=== PATIENT | female | born 1945 | race Hispanic/Latino ===

== ENCOUNTER 2018-03-04 21:33 | Emergency (ER) | payer MEDICARE, OTHER ==
[~2018-03-04] VITALS: Ht 157.5 cm; Wt 68.0 kg
[~2018-03-04 21:33] MED LIST: ALDACTONE25 MG PO; ASCORBIC ACID500 MG PO; CALCIUM + VITA1 EACH PO; DULCOLAX SUPP10 MG RC; FLUCONAZOLE200 MG PO; FUROSEMIDE20 MG PO; FUROSEMIDE40 MG PO; HYDROCODONE-IB1 EAC1 PO; LACTULOSE20 GM/30 M PO; LIDODERM PATCH 5% TOP; LISINOPRIL10 MG PO; MAGNESIUM OXID400 MG PO; MERREM500 MG IV; MIDODRINE HCL10 MG PO; MULTI-VITAMIN1 EACH PO; OMEPRAZOLE40 MG PO; PANTOPRAZOLE SO40 MG PO; REGLAN10 MG PO; SPIRONOLACTONE25 MG PO; TRAVATAN Z5 ML OP; TRAVOPROST OP; TYLENOL # 31 EA PO; ULTRAM 50MG50 MG PO; VANCOMYCIN HCL1 GM IV; XIFAXAN550 MG PO; ZEPATIER; ZINC SULFATE220 M1 PO; ZOFRAN ODT4 MG PO
--- OUTSIDE RECORDS SUMMARY | 2018-03-04 21:36 | XMS REPORT | Clinical Summary ---
Author Author [facility] Address Unknown Phone Unavailable Care Team Providers Care Spare Hand Name Role Phone Asked, Pcp PCP Unavailable Allergies Active Allergy Reactions Severity Noted Date Comments Aspirin Hives 08/25/2017 Current Medications Prescription Sig. Disp. Refills Start End Date Status Date calcium carbonate-vitamin Take 1 tablet by mouth 2 Active D3 500 mg-200 unit per (two) times a day with tablet meals. magnesium oxide (MAG-OX) Take 400 mg by mouth 2 Active 400 mg tablet (two) times a day. midodrine (PROAMATINE) 10 Take 10 mg by mouth 3 Active MG tablet (three) times a day. MULTIVITAMIN ORAL Take 1 tablet by mouth Active daily. zinc sulfate (ZINCATE) Take 220 mg by mouth 2 Active 220 (50) mg capsule (two) times a day. lactulose 20 gram/30 mL Take 45 g by mouth 3 Active solution (three) times a day. Modifies prn omeprazole (PriLOSEC) 40 Take 40 mg by mouth Active MG capsule daily. riFAXimin (XIFAXAN) 550 Take 550 mg by mouth 2 Active mg tablet (two) times a day. travoprost, benzalkonium, 1 drop nightly. Active (TRAVATAN) 0.004 % ophthalmic solution ascorbic acid, vitamin C, Take 500 mg by mouth Active (VITAMIN C) 500 MG tablet daily. acetaminophen-codeine Take 1 tablet by mouth 01/20/20 Discontin (TYLENOL WITH CODEINE #3) every 8 (eight) hours as 18 ued 300-30 mg per tablet needed for moderate pain. ascorbic acid, vitamin C, Take 500 mg by mouth 2 01/20/20 Discontin (VITAMIN C) 500 MG tablet (two) times a day. 18 ued fluconazole (DIFLUCAN) Take 200 mg by mouth 12/10/19 Discontin 200 MG tablet daily. 18 ued furosemide (LASIX) 20 mg Take 20 mg by mouth 01/20/20 Discontin tablet daily. 18 ued spironolactone Take 25 mg by mouth as 01/20/20 Discontin (ALDACTONE) 25 MG tablet needed. 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 Cirrhosis 08/24/2017 Ascites 08/24/2017 Hepatitis C 08/24/2017 Hepatic encephalopathy 08/24/2017 Portal hypertension 08/24/2017 Resolved Problems Problem Noted Date Resolved Date Preop cardiovascular exam 11/28/2017 12/29/2017 Overview: Added automatically from request for surgery [id number] Encounters Date Type Specialty Care Team Description 03/03/2018 Orders Only Transplant Lesley Hill RN HCC ( hepatocellular carcinoma); Awaiting liver transplant; Coagulopathy 02/24/2018 Orders Only Transplant Lesley Hill RN HCC ( hepatocellular carcinoma); Awaiting liver transplant; Coagulopathy 02/17/2018 Orders Only Transplant Lesley Hill RN HCC ( hepatocellular carcinoma); Awaiting liver transplant; Coagulopathy 02/10/2018 Orders Only Transplant Lesley Hill RN HCC ( hepatocellular carcinoma); Awaiting liver transplant; Coagulopathy 02/09/2018 Documentation Transplant Lesley Hill RN MELD updated to 17, labs due 05/12/2018 02/03/2018 Orders Only Transplant Lesley Hill RN HCC ( hepatocellular carcinoma); Awaiting liver transplant; Coagulopathy 01/24/2018 Orders Only Transplant Lesley Hill RN HCC ( hepatocellular carcinoma) (Primary Dx); Awaiting liver transplant; Coagulopathy 01/19/2018 Hospital Transplant Robert Garcia MD Chronic hepatitis C Encounter without hepatic coma (Primary Dx); Awaiting liver transplant 01/19/2018 Hospital Radiology Carlie Fernandez MD Hepatocellular carcinoma; Encounter Hep C w/o coma, chronic 01/19/2018 Hospital Transplant Carlie Fernandez MD Awaiting liver Encounter transplant; Chronic hepatitis C with cirrhosis 01/19/2018 Orders Only Transplant Lesley Hill RN Awaiting liver transplant (Primary Dx); Chronic hepatitis C with cirrhosis 01/13/2018 Telephone Transplant Rut Warner MA Paperwork for dental procedure 01/05/2018 Telephone Transplant Bruno Carbajal MA Returning Call 12/29/2017 Hospital Transplant Robert Garcia MD Canceled ( Insurance Encounter Pending) 12/29/2017 Hospital Transplant Carlie Fernandez MD Hep C w/o coma, chronic; Encounter Chronic hepatitis C with cirrhosis; Awaiting liver transplant 12/29/2017 Telephone Transplant Karma Hadley Insurance coverage 12/29/2017 Telephone Transplant Rut Warner MA Pt's MRI 12/29/2017 Orders Only Transplant Lesley Hill RN Chronic hepatitis C with cirrhosis (Primary Dx); Awaiting liver transplant 12/28/2017 Telephone Transplant Bruno Carbajal MA Appointment 12/09/2017 Hospital Procedural Cardiology Geena Montaño MD Preop cardiovascular Encounter exam; Hepatitis C virus infection without hepatic coma, unspecified chronicity 12/09/2017 Procedure Pass Procedural Cardiology 12/09/2017 Surgery Procedural Cardiology Aashish Carranza MD Cv selective coronary angiography [63112 (CPT )] 12/06/2017 [facility] Gastroenterology Robert Garcia MD Alcoholic cirrhosis of Encounter liver with ascites (Primary Dx); Portal hypertension 12/06/2017 Lab Lab Geena Montaño MD Preop cardiovascular exam; Hepatitis C virus infection without hepatic coma, unspecified chronicity 12/06/2017 Procedure Pass Gastroenterology 12/06/2017 Telephone Transplant Angel Capone MA Procedure Questions 12/06/2017 Anesthesia Gastroenterology Queta Mistry MD Event 12/06/2017 Procedure Pass Gastroenterology 12/06/2017 Surgery Gastroenterology Robert Garcia MD EGD with cold bx AND COLONOSCOPY 11/28/2017 Orders Only Cardiology Vaibhav Escamilla MA Preop cardiovascular exam (Primary Dx); Hepatitis C virus infection without hepatic coma, unspecified chronicity 11/22/2017 Telephone Transplant Bruno Carbajal MA Returning Call 11/14/2017 Procedure Pass Radiology 11/14/2017 Telephone Transplant Meghan Arteaga RN Schedule [facility] 11/14/2017 Transcribe Transplant Meghan Arteaga RN Hep C w/o coma, chronic Orders (Primary Dx) 11/14/2017 Documentation Transplant Meghan Arteaga RN Listed for Liver Transplant - MELD 18 11/14/2017 Transcribe Transplant Meghan Arteaga RN Hepatocellular carcinoma Orders (Primary Dx); Hep C w/o coma, chronic 10/31/2017 Telephone Transplant Meghan Arteaga RN Update on Listing Labs 10/27/2017 Office Visit Infectious Diseases Romulo Jarrett MD LTBI ( latent tuberculosis infection) (Primary Dx) 10/27/2017 Telephone Transplant Bruno Carbajal MA Appointment 10/20/2017 Telephone Transplant Meghan Arteaga RN Listing Authorization & Labs 10/20/2017 Telephone Transplant Karma Hadley 10/19/2017 [facility] Radiology Carlie Fernandez MD HCC ( hepatocellular Encounter carcinoma) 10/19/2017 [facility] Radiology Carlie Fernandez MD HCC ( hepatocellular Encounter carcinoma) 10/14/2017 Telephone Transplant Bruno Carbajal MA Appointment Questions 10/06/2017 Procedure Pass Radiology 10/06/2017 Telephone Transplant Meghan Arteaga RN Liver MRB Outcome 10/06/2017 Telephone Transplant Clara Mahan MA Returning Call 10/06/2017 Transcribe Transplant Meghan Arteaga RN HCC ( hepatocellular Orders carcinoma) (Primary Dx) 10/06/2017 Telephone Transplant Meghan Arteaga RN ID Consult 10/06/2017 Telephone Transplant Meghan Arteaga RN Liver MRB Outcome 10/06/2017 Documentation Transplant Meghan Arteaga RN Liver MRB Outcome - Accepted 10/06/2017 Telephone Transplant Rut Warner MA Mammogram results 10/05/2017 Documentation Transplant Meghan Arteaga RN Liver MRB Presentation 09/27/2017 Hospital Procedural Cardiology Rosenda Nuñez MD Screening for ischemic Encounter heart disease; Chronic hepatitis C without hepatic coma 09/27/2017 Hospital Procedural Cardiology Rosenda Nuñez MD Screening for ischemic Encounter heart disease; Chronic hepatitis C without hepatic coma 09/27/2017 Hospital Radiology Rosenda Nuñez MD Screening for ischemic Encounter heart disease; Chronic hepatitis C without hepatic coma 09/27/2017 [facility] Pulmonology Rosenda Nuñez MD Screening for ischemic Encounter heart disease; Chronic hepatitis C without hepatic coma 09/26/2017 Hospital Radiology Rosenda Nuñez MD Chronic hepatitis C Encounter without hepatic coma 09/26/2017 Hospital Radiology Rosenda Nuñez MD Screening for ischemic Encounter heart disease; Chronic hepatitis C without hepatic coma 09/26/2017 [facility] Radiology Rosenda Nuñez MD Screening for ischemic Encounter heart disease; Chronic hepatitis C without hepatic coma 09/26/2017 Hospital Radiology Rosenda Nuñez MD Screening for ischemic Encounter heart disease; Chronic hepatitis C without hepatic coma 09/26/2017 Hospital Transplant Rosenda Nuñez MD Encounter 09/26/2017 Hospital Transplant Rosenda Nuñez MD Encounter Jaleel Lee 09/26/2017 Hospital Transplant Rosenda Nuñez MD Encounter 09/26/2017 [facility] Transplant Asked, No Pcp Screening for ischemic Encounter Rahul Son MD heart disease; Chronic hepatitis C without hepatic coma 09/26/2017 Hospital Transplant Rosenda Nuñez MD Encounter 09/26/2017 [facility] Transplant Rosenda Nuñez MD Screening for ischemic Encounter heart disease; Chronic hepatitis C without hepatic coma 09/26/2017 Ancillary Radiology Rosenda Nuñez MD Chronic hepatitis C Orders without hepatic coma 09/26/2017 Telephone Transplant Angel Capone MA Orders to be Signed 09/13/2017 Procedure Pass Radiology 09/13/2017 Telephone Transplant Lee Jaleel TXP EVAL FINANCIALLY APPROVED 09/13/2017 Telephone Transplant Angel Capone MA Mammogram 09/13/2017 Transcribe Transplant Luis Adhikari Chronic hepatitis C Orders without hepatic coma (Primary Dx); Screening for ischemic heart disease 09/08/2017 Telephone Transplant Karma Hadley TXP - Auth for Eval 08/24/2017 Telephone Transplant Alessandra Key RN Referral - Liver Txp after 03/03/2017 Social History Tobacco Use Types Packs/Day Years Used Date Former Smoker Smokeless Tobacco: Never Used Alcohol Use Drinks/Week oz/Week Comments No Sex Assigned at Date Recorded Not on file Last Filed Vital Signs Vital Sign Reading Time Taken Blood Pressure 166/75 01/19/2018 1:55 PM CDT Pulse 59 01/19/2018 1:55 PM CDT Temperature 35.2 C (95.3 F) 01/19/2018 1:55 PM CDT Respiratory Rate 17 01/19/2018 1:55 PM CDT Oxygen Saturation 95% 01/19/2018 1:55 PM CDT Inhaled Oxygen - - Concentration Weight 72.8 kg (160 lb 8 oz) 01/19/2018 1:55 PM CDT Height 157.5 cm (5' 2") 01/19/2018 1:55 PM CDT Body Mass Index 29.36 01/19/2018 1:55 PM CDT Plan of Treatment Health Maintenance Due Date Last Done Comments BREAST CANCER SCREENING 1997 COLON CANCER SCREENING 1997 SHINGRIX VACCINE (#1) 1997 ZOSTER VACCINE 2007 PNEUMOCOCCAL 2012 POLYSACCHARIDE VACCINE AGE 65 AND OVER PNEUMOCOCCAL-13 2012 INFLUENZA VACCINE 05/10/2018 Procedures Procedure Name Priority Date/Time Associated Diagnosis Comments CV RIGHT HEART CATH Routine 12/09/2017 Preop cardiovascular exam Results for this 5:10 PM UNIT ASSISTANT Hepatitis C virus procedure are in the infection without hepatic results section. coma, unspecified chronicity CV SELECTIVE CORONARY Routine 12/09/2017 Preop cardiovascular exam Results for this ANGIOGRAPHY 5:10 PM UNIT ASSISTANT Hepatitis C virus procedure are in the infection without hepatic results section. coma, unspecified chronicity EGD with cold bx AND 12/06/2017 Esophageal varices COLONOSCOPY 2:00 PM UNIT ASSISTANT determined by endoscopy ECHOCARDIOGRAM WITH Routine 09/27/2017 Screening for ischemic Results for this AGITATED SALINE (00285) 4:28 PM UNIT ASSISTANT heart disease procedure are in the Chronic hepatitis C results section. without hepatic coma after 03/03/2017 Results * Basic metabolic panel (01/25/2018 4:14 PM) Only the most recent of 4 results within the time period is included. Component Value Ref Range Glucose 96 65 - 139 mg/dL Comment: Non-fasting reference interval BUN, whole blood 14 7 - 25 mg/dL Creatinine 0.62 0.60 - 0.93 mg/dL Comment: For patients >49 years of age, the reference limit for Creatinine is approximately 13% higher for people identified as -[place]. EGFR Non-Afr. [place] 91 > OR=60 mL/min/1.73m2 EGFR 106 > OR=60 mL/min/1.73m2 BUN/creatinine ratio NOT APPLICABLE 6 - 22 (calc) Sodium 132 (L) 135 - 146 mmol/L Potassium 3.7 3.5 - 5.3 mmol/L Chloride 100 98 - 110 mmol/L CO2 25 20 - 31 mmol/L Calcium 8.9 8.6 - 10.4 mg/dL Specimen Performing Laboratory [facility] Narrative FASTING:NO FASTING: NO * Hepatic function panel (01/25/2018 4:12 PM) Only the most recent of 3 results within the time period is included. Component Value Ref Range Protein 7.1 6.1 - 8.1 g/dL Albumin, S 2.6 (L) 3.6 - 5.1 g/dL Globulin, total 4.5 (H) 1.9 - 3.7 g/dL (calc) Albumin/globulin ratio 0.6 (L) 1.0 - 2.5 (calc) Total bilirubin 4.6 (H) 0.2 - 1.2 mg/dL Bilirubin direct 1.8 (H) < OR=0.2 mg/dL Bilirubin, indirect 2.8 (H) 0.2 - 1.2 mg/dL (calc) Alkaline phosphatase 170 (H) 33 - 130 U/L AST 44 (H) 10 - 35 U/L ALT 19 6 - 29 U/L Specimen Performing Laboratory [facility] Narrative FASTING:NO FASTING: NO * Prothrombin time with INR (01/25/2018 4:10 PM) Only the most recent of 3 results within the time period is included. Component Value Ref Range INR 1.6 (H) Comment: Reference Range 0.9-1.1 Moderate-intensity Warfarin Therapy 2.0-3.0 Higher-intensity Warfarin Therapy 3.0-4.0 Prothrombin time 16.3 (H) 9.0 - 11.5 sec Comment: For more information on this test, go to: http://education.[employer].[facility]/faq/RHA748 Specimen Performing Laboratory [facility] Narrative FASTING:NO FASTING: NO * Partial thromboplastin time, activated (01/25/2018 4:09 PM) Only the most recent of 3 results within the time period is included. Component Value Ref Range PTT 43 (H) 22 - 34 sec Comment: This test has not been validated for monitoring unfractionated heparin therapy. For testing that is validated for this type of therapy, please refer to the Heparin Anti-Xa assay (test code 38306). For additional information, please refer to http://education.[employer].[facility]/faq/EBM464 (This link is being provided for informational/educational purposes only.) Specimen Performing Laboratory [facility] Narrative FASTING:NO FASTING: NO * CBC with platelet and differential (01/25/2018 4:06 PM) Only the most recent of 4 results within the time period is included. Component Value Ref Range WBC 3.9 3.8 - 10.8 Thousand/uL HGB 12.6 11.7 - 15.5 g/dL MCHC Comment: 32.0 - 36.0 g/dL Unable to evaluate results due to presence of interfering substances. Irreversible cold agglutinin, auto-agglutinin, or cryoglobulin suspected. Platelet count 63 (L) 140 - 400 Thousand/uL MPV 10.5 7.5 - 12.5 fL Neutrophils, absolute 2,566 1,500 - 7,800 cells/uL Lymphocytes, absolute 874 850 - 3,900 cells/uL Monocytes, absolute 410 200 - 950 cells/uL Eosinophils, absolute 31 15 - 500 cells/uL Basophils, absolute 20 0 - 200 cells/uL Neutrophils 65.8 % Lymphocytes 22.4 % Monocytes 10.5 % Eosinophils 0.8 % Basophils + RC 0.5 % Nucleated RBC 3 Comment: Review of peripheral smear confirms automated results. RBC TNP Million/uL Comment: TEST(S) NOT PERFORMED: RED BLOOD CELL COUNT HEMATOCRIT MCV MCH RDW * Unable to report due to * * possible interfering substances.* Specimen Performing Laboratory [facility] Narrative FASTING:NO FASTING: NO * Estimated GFR (01/19/2018 2:25 PM) Only the most recent of 2 results within the time period is included. Component Value Ref Range GFR Non Af Amer 83 mL/min/1.73 m2 GFR Af Amer >90 mL/min/1.73 m2 Comment: Chronic kidney disease: <60 mL/min/1.73m2 Kidney failure: <15 mL/min/1.73m2 The estimated GFR is calculated from the IDMS-traceable Modification of Diet in Renal Disease Equation. The accuracy of the calculation is poor when the creatinine is normal. Calculated values >90 mL/min/1.73m2 are not reported. This equation has not been validated in children (<18 years), women, the elderly (>70 years), or ethnic groups other than Caucasians and Americans. Specimen Performing Laboratory Plasma specimen [facility] DEPARTMENT OF PATHOLOGY AND GENOMIC MEDICINE [address] [place] [id number] * Alpha fetoprotein (01/19/2018 2:25 PM) Only the most recent of 2 results within the time period is included. Component Value Ref Range Alpha fetoprotein 4.0 0.0 - 8.3 ng/mL Comment: The Briana 8000 AFP immunoassay was used. Results obtained with different assay methods or kits should not be used interchangeably and may be different. Specimen Performing Laboratory Serum [facility] DEPARTMENT OF PATHOLOGY AND GENOMIC MEDICINE [address] [place] [id number] * MRI Abdomen W Wo Contrast (01/19/2018 1:26 PM) Only the most recent of 2 results within the time period is included. Specimen Performing Laboratory [facility] [address] [place] [id number] Narrative EXAMINATION:MRI ABDOMEN W WO CONTRAST CLINICAL HISTORY:C22.0 Liver cell carcinoma, B18.2 Chronic viral hepatitis C , HCC Screen COMPARISON:September 27, 2017 TECHNIQUE: Multiplanar, multisequence MRI of the abdomen with and without intravenous gadolinium. FINDINGS: Liver cirrhotic. Multiple cysts are again seen in both lobes. A 1.4 cm nodule in segment 3 near the falciform ligament demonstrating washout, pseudocapsule, and diffusion restriction is not significantly changed since previous exam of September 27, 2017. No new mass is identified. Portal vein is patent. Spleen is mildly enlarged. Large splenorenal shunt. Gallbladder and pancreas unremarkable. No ascites. IMPRESSION: No significant change of a 1.4 cm left lobe mass compatible with HCC (LIRADS 5). [facility]-[id number] Procedure Note [facility], Radiology Results Incoming - 01/19/2018 2:23 PM CDT EXAMINATION: MRI ABDOMEN W WO CONTRAST CLINICAL HISTORY: C22.0 Liver cell carcinoma, B18.2 Chronic viral hepatitis C, HCC Screen COMPARISON: September 27, 2017 TECHNIQUE: Multiplanar, multisequence MRI of the abdomen with and without intravenous gadolinium. FINDINGS: Liver cirrhotic. Multiple cysts are again seen in both lobes. A 1.4 cm nodule in segment 3 near the falciform ligament demonstrating washout, pseudocapsule, and diffusion restriction is not significantly changed since previous exam of September 27, 2017. No new mass is identified. Portal vein is patent. Spleen is mildly enlarged. Large splenorenal shunt. Gallbladder and pancreas unremarkable. No ascites. IMPRESSION: No significant change of a 1.4 cm left lobe mass compatible with HCC (LIRADS 5). [facility]-[id number] * Estimated GFR (01/19/2018 1:04 PM) Component Value Ref Range GFR Non Af Amer 83 mL/min/1.73 m2 GFR Af Amer >90 mL/min/1.73 m2 Comment: Chronic kidney disease: <60 mL/min/1.73m2 Kidney failure: <15 mL/min/1.73m2 The estimated GFR is calculated from the IDMS-traceable Modification of Diet in Renal Disease Equation. The accuracy of the calculation is poor when the creatinine is normal. Calculated values >90 mL/min/1.73m2 are not reported. This equation has not been validated in children (<18 years), women, the elderly (>70 years), or ethnic groups other than Caucasians and Americans. Specimen Performing Laboratory Blood [facility] DEPARTMENT OF PATHOLOGY AND GENOMIC MEDICINE [address] [place] [id number] * POC creatinine (01/19/2018 1:04 PM) Component Value Ref Range POC creatinine 0.7 0.5 - 0.9 mg/dl Comment: Meter ID: [id number] Tool And Die Inspector: Edu Mullen Specimen Performing Laboratory Blood [facility] DEPARTMENT OF PATHOLOGY AND GENOMIC MEDICINE [address] [place] [id number] * Cv research laboratory specialist procedure (12/09/2017 5:10 PM) Specimen Performing Laboratory [facility] [address] [place] [address] Narrative Right heart filling pressure is normal. Pulmonary hypertension is absent. Wedge pressure is normal. Cardiac output is increased. Overall low risk from CV standpoint. No significant CAD noted. Normal filling pressures. * ECG Pre/Post Op (12/09/2017 3:55 PM) Component Value Ref Range Ventricular rate 56 Atrial rate 56 CA interval 130 QRSD interval 88 QT interval 484 QTC interval 467 P axis 1 13 QRS axis 1 -4 T wave axis 16 EKG impression Sinus bradycardia-Otherwise normal ECG-In automated comparison with ECG of 26-SEP-2017 09:17,-No significant change was found- Specimen Performing Laboratory [facility] MUSE [address] [place] [id number] * Surgical pathology request (12/06/2017 3:48 PM) Component Value Ref Range Surgical pathology report See link below for PDF Lab Report Result status This is Final Report to [id number] Specimen Performing Laboratory [facility] DEPARTMENT OF PATHOLOGY AND GENOMIC MEDICINE [address] [place] [address] * PT and PTT (12/06/2017 3:33 PM) Component Value Ref Range PTT 44 (H) 22 - 34 sec Comment: This test has not been validated for monitoring unfractionated heparin therapy. For testing that is validated for this type of therapy, please refer to the Heparin Anti-Xa assay (test code 66442). For additional information, please refer to http://education.[employer]/faq/YQY645 (This link is being provided for informational/educational purposes only.) INR 1.6 (H) Comment: Reference Range 0.9-1.1 Moderate-intensity Warfarin Therapy 2.0-3.0 Higher-intensity Warfarin Therapy 3.0-4.0 Prothrombin time 16.3 (H) 9.0 - 11.5 sec Specimen Performing Laboratory [facility] * CT Chest Wo Contrast (10/19/2017 5:18 PM) Specimen Performing Laboratory [address] [address] Narrative EXAMINATION: CT CHEST WO CONTRAST CLINICAL HISTORY: C22.0 Liver cell carcinoma, Mets W U TECHNIQUE: Multiple axial images of the chest were obtained without intravenous contrast. The lack of intravenous contrast reduces the sensitivity of detecting solid organ disease and evaluating vasculature. Sagittal and coronal computerized reformatted images were also obtained. CT imaging was performed with iterative reconstruction techniques and/or automated exposure control to reduce radiation dose. COMPARISON: None. IMPRESSION: 1.There are no pulmonary metastases. 2.A 3-4 mm juxtapleural nodule in the right lower lobe (image 75) is probably benign, possibly microatelectasis and can be followed. 3.There is minimal interstitial prominence in the lung bases. There is no acute consolidation. 4.There is no pleural or pericardial effusions are 5.No suspicious thoracic lymph nodes are seen. 6.The heart size is upper limit of normal. 7.Cirrhosis, multiple low-attenuation liver lesions, splenomegaly, and left upper quadrant abdominal varices are present. Refer to abdominal MRI 09/27/2017. 8.No skeletal metastases are seen. [id number] Procedure Note Interface, Radiology Results Incoming - 10/19/2017 5:39 PM UNIT ASSISTANT EXAMINATION: CT CHEST WO CONTRAST CLINICAL HISTORY: C22.0 Liver cell carcinoma, Mets W U TECHNIQUE: Multiple axial images of the chest were obtained without intravenous contrast. The lack of intravenous contrast reduces the sensitivity of detecting solid organ disease and evaluating vasculature. Sagittal and coronal computerized reformatted images were also obtained. CT imaging was performed with iterative reconstruction techniques and/or automated exposure control to reduce radiation dose. COMPARISON: None. IMPRESSION: 1. There are no pulmonary metastases. 2. A 3-4 mm juxtapleural nodule in the right lower lobe (image 75) is probably benign, possibly microatelectasis and can be followed. 3. There is minimal interstitial prominence in the lung bases. There is no acute consolidation. 4. There is no pleural or pericardial effusions are 5. No suspicious thoracic lymph nodes are seen. 6. The heart size is upper limit of normal. 7. Cirrhosis, multiple low-attenuation liver lesions, splenomegaly, and left upper quadrant abdominal varices are present. Refer to abdominal MRI 09/27/2017. 8. No skeletal metastases are seen. [id number] * MRI Bone Survey (10/19/2017 3:40 PM) Specimen Performing Laboratory [facility] [address] [place] [address] Narrative EXAMINATION:MRI BONE SURVEY CLINICAL HISTORY:C22.0 Liver cell carcinoma, Mets W U TECHNIQUE: Multiplanar T1-weighted images of the axial and proximal appendicular skeletal system were obtained. COMPARISON:None. Impression: 1.There is no marrow infiltrating lesion to indicate metastatic disease. 2.There is degenerative disc disease in the lumbar spine, greatest at L2-L3 and L3-L4. 3.There are small bilateral pleural effusions. 4.There are multiple T1 dark liver lesions. See recent abdominal MRI report from 09/27/2017 5.There is diffuse T1 hyperintense thickening/distention of the endometrial canal up to 2.6 cm. An IUD appears to be present as well. Recommend pelvic ultrasound for further evaluation. [id number] Procedure Note Interface, Radiology Results Incoming - 10/19/2017 3:53 PM UNIT ASSISTANT EXAMINATION: MRI BONE SURVEY CLINICAL HISTORY: C22.0 Liver cell carcinoma, Mets W U TECHNIQUE: Multiplanar T1-weighted images of the axial and proximal appendicular skeletal system were obtained. COMPARISON: None. Impression: 1. There is no marrow infiltrating lesion to indicate metastatic disease. 2. There is degenerative disc disease in the lumbar spine, greatest at L2-L3 and L3-L4. 3. There are small bilateral pleural effusions. 4. There are multiple T1 dark liver lesions. See recent abdominal MRI report from 09/27/2017 5. There is diffuse T1 hyperintense thickening/distention of the endometrial canal up to 2.6 cm. An IUD appears to be present as well. Recommend pelvic ultrasound for further evaluation. [id number] * Echocardiogram complete w contrast and 3D if needed (09/27/2017 4:28 PM) Specimen Performing Laboratory [facility] [address] [place] [address] Narrative Echocardiography Report [address]Name:MATILDE SANTA Pat.ID:[id number] .Date: 09/27/2017Refer.MD:Dunia NUÑEZ MD Exam Time: 3:46:00 PMStudy Type:Routine Echo Height:62inWeight:160lb BSA: 1.74 m2 DOBAge:1945,71Y Sex: FEMALEBP: 133/76 HR:65 bpmSonogrphr: Beto Henley [facility] Pat. Stat.:OutpatientStudy Status:Final Echo Event ID:[id number] Order ID:[id number] Reason for Study:Perioperative function eval-pre non cardiac transplant History / Clinical:Dizziness, Edema, Shortness of Breath Procedures:2D Echo, Colorflow Doppler, Intravenous Saline Contrast Race:C SUMMARY: LV EF is hyperdynamic. RV systolic function is normal Right to left shunt through a patent foramen ovale. Unable to assess PA systolic pressure despite use of contrast. FINDINGS: LV: LV size is normal. LV EF is hyperdynamic. Overall wall motionis hyperdynamic. Estimated EF is >70%. RV: RV size is normal. RV systolic function is normal. LA: LA volume is severely enlarged. RA: RA volume is severely enlarged. AO: Aortic root diameter is normal. JOSE: No pericardial effusion. Cntrst: Right to left shunt through a patent foramen ovale. AV: No structural AV abnormalities noted. MV: No structural MV abnormalities noted. A trace of mitral regurgitation. PV: Pulmonic valve not well seen. TV: No structural TV abnormalities noted. Mild tricuspid regurgitation Villeda: LV relaxation is impaired. LV filling pressure is normal. Other:Insufficient TR jet to estimate PA systolic pressure. Unable toassess PA systolic pressure despite use of contrast. MEASUREMENTS: 2D Parasternal [place] LVOT 1.9 cmLA Ds 4.1 cm LVIDd5.2 cmIndex 3 cm/m Ao Rtd 3.2 cm Index1.8 cm/m LVIDs2.1 cmLV Mass 117.7 g(87-129) LV%fs 59 % LVM Index 67.6 g/m2 IVSd 0.7 cmRWT 0.3 LVPWd0.6 cm LA Sng Plane LA Area 29.8 cm2(8.8-23.4) LA Vol 119.7 ml Index68.8 ml/m LA LngAx 6.1 cm DOPPLER LVOT For Flow LVOT Area2.8 cm2 LVOT SV 107.2 ml FPPPqvYoj206.4 cm/sHR 60.8 bpm [id number] mmHgLVOT CO 6.5 l/min LVOTmnPG 4.8 mmHgLVOT CI 3.7 l/m/m2 LVOT TVI37.8 cm Signed 09/28/2017 03:33 PM Annette Washington M.D. Procedure Note Interface, Radiology Results In - 09/28/2017 3:33 PM [facility] Echocardiography Report [address] [place] [address] Pat.Name: MATILDE SANTA Pat.ID: [id number] St.Date: 09/27/2017 Refer.MD: Dunia NUÑEZ MD Exam Time: 3:46:00 PM Study Type:Routine Echo Height: 62in Weight: 160lb BSA: 1.74 m2 Age: 2 1945,71Y Sex: FEMALE BP: 133/76 HR: 65 bpm Sonogrphr: TONI Olvera Pat. Stat.:Outpatient Study Status:Final Echo Event ID:[id number] Order ID: [id number] Reason for Study:Perioperative function eval-pre non cardiac transplant History / Clinical:Dizziness, Edema, Shortness of Breath Procedures:2D Echo, Colorflow Doppler, Intravenous Saline Contrast Race: C SUMMARY: LV EF is hyperdynamic. RV systolic function is normal Right to left shunt through a patent foramen ovale. Unable to assess PA systolic pressure despite use of contrast. FINDINGS: LV: LV size is normal. LV EF is hyperdynamic. Overall wall motion is hyperdynamic. Estimated EF is >70%. RV: RV size is normal. RV systolic function is normal. LA: LA volume is severely enlarged. RA: RA volume is severely enlarged. AO: Aortic root diameter is normal. JOSE: No pericardial effusion. Cntrst: Right to left shunt through a patent foramen ovale. AV: No structural AV abnormalities noted. MV: No structural MV abnormalities noted. A trace of mitral regurgitation. PV: Pulmonic valve not well seen. TV: No structural TV abnormalities noted. Mild tricuspid regurgitation Villeda: LV relaxation is impaired. LV filling pressure is normal. Other: Insufficient TR jet to estimate PA systolic pressure. Unable to assess PA systolic pressure despite use of contrast. MEASUREMENTS: 2D Parasternal [place] LVOT 1.9 cm LA Ds 4.1 cm LVIDd 5.2 cm Index 3 cm/m Ao Rtd 3.2 cm Index 1.8 cm/m LVIDs 2.1 cm LV Mass 117.7 g (87-129) LV%fs 59 % LVM Index 67.6 g/m2 IVSd 0.7 cm RWT 0.3 LVPWd 0.6 cm LA Sng Plane LA Area 29.8 cm2 (8.8-23.4) LA Vol 119.7 ml Index 68.8 ml/m LA LngAx 6.1 cm DOPPLER LVOT For Flow LVOT Area 2.8 cm2 LVOT SV 107.2 ml LVOTpkVel 158.4 cm/s HR 60.8 bpm LVOTpkPG 10 mmHg LVOT CO 6.5 l/min LVOTmnPG 4.8 mmHg LVOT CI 3.7 l/m/m2 LVOT TVI 37.8 cm Signed 09/28/2017 03:33 PM Annette Washington M.D. * PV carotid duplex (09/27/2017 3:51 PM) Specimen Performing Laboratory [facility] [address] [place] [address] [facility] Vascular Ultrasound Laboratory Carotid Artery Duplex Report [address] [address], [place] [address] For research quality assurance analyst purposes, the categorization of the degree of the stenosis of this exam is based on criteria described in the IAC carotid stenosis grading white paper( www.intersocietal.org/Vascular) and Patricia Macias., Rachel Tran, et al. Carotid artery stenosis: vargas-scale and Doppler US diagnosis--Society of Radiologists in Ultrasound Consensus Conference. Radiology. 2003 Nov; 229(2):340-6. Pat.Name:MATILDE SANTA Pat.ID:[id number] .Date: 09/27/2017Refer.MD:ROSENDA NUÑEZ MD Exam Time: 3:38:00 PMStudy Type:Carotid Height:62inWeight:160lb BSA: 1.74 m2 DOBAge:1945,71Y Sex: FEMALESonogrphr: Jules Moreau RN, RVS Pat. Stat.:OutpatientRoom:[place] TapeVol: , CPT - 4: 93607 Echo Event ID:[id number] Order ID:[id number] Reason for Study:Chronic hepatitis-C. Pre-op CV exam for liver transplant. Race:C SUMMARY: PHYSICAL ASSESSMENT BloodPulsesCarotid Pressure Carotid TemporalBruit Right IV ++0 Left 121/55 ++0 CAROTID ARTERY SCAN RIGHT: There is smooth intimal lining in the common carotid artery. There is hard plaque in the bulb, internal carotid artery.The external carotid artery is clear.Colorflow is normal. LEFT:There is smooth intimal lining in the common carotid artery. There is hard plaque in the bulb, internal carotid artery.The external carotid artery is clear.Colorflow is normal. PRELIMINARY FINDINGS 1. Mild, <50% stenosis in the bulb and internal carotid artery, bilaterally. PHYSICIAN INTERPRETATION 1.Bilateral carotid artery examination demonstrates plaque in the bulbs and internal carotid arteries without hemodynamically significant stenosis. (<50%) Carotid Findings:RightLeft Verteb.Flw Antegrade Antegrade Subclavian Triphasic Triphasic MEASUREMENTS: DOPPLER Left CCA Dist CCA Dist PSV88.8 cm/sCCA Dist EDV25.9 cm/s Left CCA Mid CCA Mid PSV 95.9 cm/sCCA Mid EDV 18.9 cm/s Left CCA Prox CCA Prox PSV89.6 cm/sCCA Prox EDV21.2 cm/s Left ICA Dist ICA Dist PSV51.7 cm/Beck Dist EDV16.1 cm/s Left ICA Mid ICA Mid PSV 55.2 cm/Beck Mid EDV 19.1 cm/s Left ICA Prox ICA Prox PSV46 cm/Beck Prox EDV17.1 cm/ s Left ECA Prox ECA Prox PSV39.6 cm/sECA Prox EDV13.1 cm/s Left SCA Prox SCA Prox PSV94.4 cm/s Left Vertebral Vertebral PSV 57.5 cm/sVertebral EDV 13.5 cm/s Right CCA Dist CCA Dist PSV66.3 cm/sCCA Dist EDV17.6 cm/s Right CCA Mid CCA Mid PSV 82.1 cm/sCCA Mid EDV 18.8 cm/s Right CCA Prox CCA Prox PSV76.8 cm/sCCA Prox EDV19.9 cm/s Right ICA Dist ICA Dist PSV71.5 cm/Beck Dist EDV23.7 cm/s Right ICA Mid ICA Mid PSV 77.3 cm/Beck Mid EDV 27.6 cm/s Right ICA Prox ICA Prox PSV78.6 cm/Beck Prox EDV18.8 cm/s Right ECA Prox ECA Prox PSV73.9 cm/sECA Prox EDV12.9 cm/s Right SCA Prox SCA Prox PSV90.4 cm/s Right Vertebral Vertebral PSV 35.4 cm/sVertebral EDV 6.29 cm/s Right ICA/CCA Ratio ICA/CCA PSV0.957 Left ICA/CCA Ratio ICA/CCA PSV 0.48 Signed 09/27/2017 08:52 PM Randal Dunham MD Procedure Note Interface, Radiology Results In - 09/27/2017 8:53 PM [facility] Vascular Ultrasound Laboratory Carotid Artery Duplex Report [address] [id number] For research quality assurance analyst purposes, the categorization of the degree of the stenosis of this exam is based on criteria described in the IAC carotid stenosis grading white paper( www.intersocietal.org/Vascular) and Patricia Macias., Rachel Tran, et al. Carotid artery stenosis: vargas-scale and Doppler US diagnosis--Society of Radiologists in Ultrasound Consensus Conference. Radiology. 2003 Aug; 229(2):340-6. Pat.Name: MATILDE SANTA.ID: [id number] .Date: 09/27/2017 Refer.MD: ROSENDA NUÑEZ MD Exam Time: 3:38:00 PM Study Type:Carotid Height: 62in Weight: 160lb BSA: 1.74 m2 Age: 2 1945,71Y Sex: FEMALE Sonogrphr: Jules Moreau, RN, RVS Pat. Stat.:Outpatient Room: [place] Tape Vol: PM, CPT - 4: 69977 Echo Event ID:[id number] Order ID: [id number] Reason for Study:Chronic hepatitis-C. Pre-op CV exam for liver transplant. Race: C SUMMARY: PHYSICAL ASSESSMENT Blood Pulses Carotid Pressure Carotid Temporal Bruit Right IV + + 0 Left 121/55 + + 0 CAROTID ARTERY SCAN RIGHT: There is smooth intimal lining in the common carotid artery. There is hard plaque in the bulb, internal carotid artery. The external carotid artery is clear. Colorflow is normal. LEFT:There is smooth intimal lining in the common carotid artery. There is hard plaque in the bulb, internal carotid artery. The external carotid artery is clear. Colorflow is normal. PRELIMINARY FINDINGS 1. Mild, <50% stenosis in the bulb and internal carotid artery, bilaterally. PHYSICIAN INTERPRETATION 1. Bilateral carotid artery examination demonstrates plaque in the bulbs and internal carotid arteries without hemodynamically significant stenosis. (<50%) Carotid Findings: Right Left Verteb.Flw Antegrade Antegrade Subclavian Triphasic Triphasic MEASUREMENTS: DOPPLER Left CCA Dist CCA Dist PSV 88.8 cm/s CCA Dist EDV 25.9 cm/s Left CCA Mid CCA Mid PSV 95.9 cm/s CCA Mid EDV 18.9 cm/s Left CCA Prox CCA Prox PSV 89.6 cm/s CCA Prox EDV 21.2 cm/s Left ICA Dist ICA Dist PSV 51.7 cm/s ICA Dist EDV 16.1 cm/s Left ICA Mid ICA Mid PSV 55.2 cm/s ICA Mid EDV 19.1 cm/s Left ICA Prox ICA Prox PSV 46 cm/s ICA Prox EDV 17.1 cm/s Left ECA Prox ECA Prox PSV 39.6 cm/s ECA Prox EDV 13.1 cm/s Left SCA Prox SCA Prox PSV 94.4 cm/s Left Vertebral Vertebral PSV 57.5 cm/s Vertebral EDV 13.5 cm/s Right CCA Dist CCA Dist PSV 66.3 cm/s CCA Dist EDV 17.6 cm/s Right CCA Mid CCA Mid PSV 82.1 cm/s CCA Mid EDV 18.8 cm/s Right CCA Prox CCA Prox PSV 76.8 cm/s CCA Prox EDV 19.9 cm/s Right ICA Dist ICA Dist PSV 71.5 cm/s ICA Dist EDV 23.7 cm/s Right ICA Mid ICA Mid PSV 77.3 cm/s ICA Mid EDV 27.6 cm/s Right ICA Prox ICA Prox PSV 78.6 cm/s ICA Prox EDV 18.8 cm/s Right ECA Prox ECA Prox PSV 73.9 cm/s ECA Prox EDV 12.9 cm/s Right SCA Prox SCA Prox PSV 90.4 cm/s Right Vertebral Vertebral PSV 35.4 cm/s Vertebral EDV 6.29 cm/s Right ICA/CCA Ratio ICA/CCA PSV 0.957 Left ICA/CCA Ratio ICA/CCA PSV 0.48 Signed 09/27/2017 08:52 PM Randal Dunham MD * Arterial blood gas, pulmonary func dept (09/27/2017 11:00 AM) Component Value Ref Range pH, arterial 7.470 (H) 7.350 - 7.450 units pCO2, arterial 34.2 (L) 35.0 - 45.0 mmHg pO2, arterial 83.5 80.0 - 90.0 mmHg O2 saturation, arterial 97.3 95.0 - 100.0 % Base excess, arterial 1.5 -2.0 - 2.0 mEq/L Bicarbonate 24.9 21.0 - 28.0 mEq/L O2 content 14.8 VOL% Carboxyhemoglobin 1.8 (H) 0.0 - 1.4 % Comment: Reference Ranges: Carboxyhemoglobin Non smoker: 0.0 - 2.0% Smoker: 2.1 - 5.0% Heavy smoker: 5.1 - 9% Methemoglobin 0.5 0.0 - 1.0 % Hemoglobin, blood gas 11.0 (L) 12.0 - 16.0 g/dL Specimen Performing Laboratory Blood [facility] DEPARTMENT OF PATHOLOGY AND GENOMIC MEDICINE [address] [place], [place] [id number] * Bone Density Peripheral (09/26/2017 3:12 PM) Specimen Performing Laboratory [address] [address] Narrative EXAMINATION:BONE DENSITY PERIPHERAL CLINICAL HISTORY:B18.2 Chronic viral hepatitis C COMPARISON:None. Impression: 1.See accession #IM [id number]. [id number] Procedure Note Interface, Radiology Results Incoming - 09/26/2017 3:26 PM UNIT ASSISTANT EXAMINATION: BONE DENSITY PERIPHERAL CLINICAL HISTORY: B18.2 Chronic viral hepatitis C COMPARISON: None. Impression: 1. See accession #IM [id number]. [id number] * Bone Density (09/26/2017 3:12 PM) Specimen Performing Laboratory [address] [address] Narrative EXAMINATION:BONE DENSITY CLINICAL HISTORY: 71 years Female Z13.6 Encounter for screening for cardiovascular disorders, B18.2 Chronic viral hepatitis C, Liver transplant evaluation COMPARISON:None. The results of this study expressed as bone mineral density (BMD) were as follows: AP spine (L1-L4) BMD: 1.238 g/cm2 T-Score: 0.5 Z-Score: 1.9 Dual Femur (Total Mean): BMD: 0.906 g/cm2 T-Score: -0.8 Z-Score:0.4 Left Forearm (Radius 33%): BMD: 0.776 g/cm2 T-Score: -1.1 Z-Score: 0.6 Trabecular Bone Score (TBS): TBS L1-L4: 1.185,(>1.350 normal, 1.200-1.350 partially degraded microarchitecture, <1.200 degraded microarchitecture) The 10 year probability of fracture, adjusted for FRAX: Major Osteoporotic Fracture: 10.1% Hip Fracture:1.1% Femur FRAX: Risk factors: None. 10 year probability of fracture: 1.Major osteoporotic: 8.4% 2.Hip: 0.8% 3.Based on femur right neck BMD Impression: 1.WHO classification consistent with osteopenia based on T score left forearm radius 33%. Notes: *The world health organization (WHO) has classified the patient's T-score as follows: At or above (-1) as normal (-1) to (-2.5) as low (osteopenia) At or below (-2.5) as abnormally low (osteoporosis, increased fracture risk) For premenopausal women, men under the age 50 years, and children the WHO classification does not apply. In these individuals please assess bone mineral density with Z scores for each skeletal site examined. Z scores above -2.0: Within expected range for age. Z scores lower than -2.0:Low bone density for age. The TBS is derived from the texture of the DEXA image and has been shown to be related to bone microarchitecture and fracture risk. This data provides information independent of BMD value; is used as a complement to the data obtained from the DEXA analysis and the clinical examination. The TBS can assist the healthcare professional in assessment of fracture risk and in monitoring the effect of treatments on patient over time. [id number] Procedure Note Hm Interface, Radiology Results Incoming - 09/26/2017 3:26 PM UNIT ASSISTANT EXAMINATION: BONE DENSITY CLINICAL HISTORY: 71 years Female Z13.6 Encounter for screening for cardiovascular disorders, B18.2 Chronic viral hepatitis C, Liver transplant evaluation COMPARISON: None. The results of this study expressed as bone mineral density (BMD) were as follows: AP spine (L1-L4) BMD: 1.238 g/cm2 T-Score: 0.5 Z-Score: 1.9 Dual Femur (Total Mean): BMD: 0.906 g/cm2 T-Score: -0.8 Z-Score: 0.4 Left Forearm (Radius 33%): BMD: 0.776 g/cm2 T-Score: -1.1 Z-Score: 0.6 Trabecular Bone Score (TBS): TBS L1-L4: 1.185, (>1.350 normal, 1.200-1.350 partially degraded microarchitecture, <1.200 degraded microarchitecture) The 10 year probability of fracture, adjusted for FRAX: Major Osteoporotic Fracture: 10.1% Hip Fracture: 1.1% Femur FRAX: Risk factors: None. 10 year probability of fracture: 1. Major osteoporotic: 8.4% 2. Hip: 0.8% 3. Based on femur right neck BMD Impression: 1. WHO classification consistent with osteopenia based on T score left forearm radius 33%. Notes: *The world health organization (WHO) has classified the patient's T-score as follows: At or above (-1) as normal (-1) to (-2.5) as low (osteopenia) At or below (-2.5) as abnormally low (osteoporosis, increased fracture risk) For premenopausal women, men under the age 50 years, and children the WHO classification does not apply. In these individuals please assess bone mineral density with Z scores for each skeletal site examined. Z scores above -2.0: Within expected range for age. Z scores lower than -2.0: Low bone density for age. The TBS is derived from the texture of the DEXA image and has been shown to be related to bone microarchitecture and fracture risk. This data provides information independent of BMD value; is used as a complement to the data obtained from the DEXA analysis and the clinical examination. The TBS can assist the healthcare professional in assessment of fracture risk and in monitoring the effect of treatments on patient over time. [id number] * XR Chest 2 Vw (09/26/2017 3:12 PM) Specimen Performing Laboratory [facility] [address] [place] [address] Narrative Examination:XR CHEST 2 VW Clinical History: Z13.6 Encounter for screening for cardiovascular disorders, B18.2 Chronic viral hepatitis C, Liver transplant evaluation Comparison: None. Technique: Frontal and lateral views of the chest Impression: No consolidation or pleural effusion. Mild interstitial prominence is of questionable significance. Normal heart size and pulmonary vascularity. Osseous structures are grossly intact. [facility]-[id number] Procedure Note Interface, Radiology Results Incoming - 09/26/2017 3:24 PM UNIT ASSISTANT Examination: XR CHEST 2 VW Clinical History: Z13.6 Encounter for screening for cardiovascular disorders, B18.2 Chronic viral hepatitis C, Liver transplant evaluation Comparison: None. Technique: Frontal and lateral views of the chest Impression: No consolidation or pleural effusion. Mild interstitial prominence is of questionable significance. Normal heart size and pulmonary vascularity. Osseous structures are grossly intact. [facility]-[id number] * XR Panorex (09/26/2017 3:12 PM) Specimen Performing Laboratory [facility] [address] [place] [address] Narrative EXAMINATION: XR PANOREX CLINICAL HISTORY: Z13.6 Encounter for screening for cardiovascular disorders, B18.2 Chronic viral hepatitis C, Liver transplant evaluation COMPARISON:None IMPRESSION: Panorex imaging of the maxilla and mandible was obtained. There are only a few remaining teeth in the maxilla with the central remaining teeth having large dental caries in some associated periapical lucencies. This includes a lucency around the bilateral central incisors, left greater than right, left lateral incisor and remaining right canine tooth. The central remaining mandibular teeth appear in better shape but there is still a lucency noted in the right central incisor and left periapical lucency around the mandibular left canine tooth. No displaced fracture identified. [facility]-[id number] Procedure Note Interface, Radiology Results Incoming - 09/26/2017 3:41 PM UNIT ASSISTANT EXAMINATION: XR PANOREX CLINICAL HISTORY: Z13.6 Encounter for screening for cardiovascular disorders, B18.2 Chronic viral hepatitis C, Liver transplant evaluation COMPARISON: None IMPRESSION: Panorex imaging of the maxilla and mandible was obtained. There are only a few remaining teeth in the maxilla with the central remaining teeth having large dental caries in some associated periapical lucencies. This includes a lucency around the bilateral central incisors, left greater than right, left lateral incisor and remaining right canine tooth. The central remaining mandibular teeth appear in better shape but there is still a lucency noted in the right central incisor and left periapical lucency around the mandibular left canine tooth. No displaced fracture identified. [id number] * Low resolution full typing by [facility] (09/26/2017 12:00 PM) Component Value Ref Range Low resolution full See link below for PDF Lab Report typing by [facility]SO Specimen Performing Laboratory [facility] DEPARTMENT OF PATHOLOGY AND [address] [address] * C1Q class 1 & 2 antibody (09/26/2017 12:00 PM) Component Value Ref Range C1Q class 1 & 2 antibody See link below for PDF Lab Report Specimen Performing Laboratory [facility] DEPARTMENT OF PATHOLOGY AND [address] [address] * Syphilis treponemal IgG (09/26/2017 12:00 PM) Component Value Ref Range Syphilis treponemal IgG Non-reactiveComment: Non-reactive: No serological Non-reactive evidence of Syphilis infection Specimen Performing Laboratory Serum [facility] DEPARTMENT OF PATHOLOGY AND [address] [address] * Opiates, s/p, quant (09/26/2017 12:00 PM) Component Value Ref Range 6-acetylmorphine, s/p, <2 ng/mL quant Comment: INTERPRETIVE INFORMATION: Opiates, Serum or Plasma, Quantitative Methodology: Quantitative Liquid Chromatography-Tandem Mass Spectrometry Positive cutoff: 2 ng/mL For medical purposes only; not valid for forensic use. Identification of specific drug(s) taken by specimen donor is problematic due to common metabolites, some of which are prescription drugs themselves. The absence of expected drug(s) and/or drug metabolite(s) may indicate non-compliance, inappropriate timing of specimen collection relative to drug administration, poor drug absorption, or limitations of testing. All drugs covered are the non-glucuronidated (free) form. The concentration value must be greater than or equal to the cutoff to be reported as positive. A very small amount of an unexpected drug analyte in the presence of a large amount of an expected drug analyte may reflect pharmaceutical impurity. Interpretive questions should be directed to the laboratory. Test developed and characteristics determined by [facility]. See Compliance Statement B: [facility]/ Codeine, s/p, quant 2 ng/mL Comment: Codeine is not a recognized metabolite of other opiates and its presence usually indicates use of a codeine-containing drug. Codeine is metabolized to morphine and hydrocodone. Morphine, s/p, quant 32 ng/mL Comment: Morphine may arise from morphine-containing drugs, poppy seeds, or by metabolism of either codeine or 6-AM. Morphine is metabolized to hydromorphone. Hydrocodone, s/p, quant <2 ng/mL Hydromoprhone, s/p, quant <2 ng/mL Oxycodone, s/p, quant <2 ng/mL Oxymorphone, s/p, quant <2 ng/mL Comment: Performed by [facility], [address] [place] [phone] [email or web address].[employer], Ford Beck MD - Lab. Director Specimen Performing Laboratory [facility] [address] [place] [id number] * HCV qualitative by PCR (09/26/2017 12:00 PM) Component Value Ref Range HCV PCR result Not-Detected Not-Detected HCV RNA qualitative See link below for PDF Lab ReportComment: Specimen Performing Laboratory Serum [facility] DEPARTMENT OF PATHOLOGY AND GENOMIC MEDICINE [address] [place] [address] * Anti smooth muscle Ab screen (09/26/2017 12:00 PM) Component Value Ref Range Anti smooth muscle Ab Not Detected Not-Detected screen Specimen Performing Laboratory Blood [facility] DEPARTMENT OF PATHOLOGY AND GENOMIC MEDICINE [address] [place] [address] * Total iron binding capacity (09/26/2017 12:00 PM) Component Value Ref Range Iron level 243 (H) 37 - 145 ug/dL Iron binding capacity 260 200 - 400 ug/dL % Saturation 93.5 (H) 15.0 - 38.0 % Specimen Performing Laboratory Plasma specimen [facility] DEPARTMENT OF PATHOLOGY AND GENOMIC MEDICINE [address] [place] [address] * TB T-SPOT (09/26/2017 12:00 PM) Component Value Ref Range TB T-SPOT SEE NOTE (A) Comment: T-SPOT TUBERCULOSIS Nil Control: 0 Panel A: 1 Panel B: 13 Positive Control: SAT Result: POSITIVE NOTE: TMTC INDICATES TOO MANY SPOTS TO COUNT SAT INDICATES THE WELL WAS SATURATED RESULTS INTERPRETATION: RESULTS ARE NEGATIVE WHEN (PANEL A-NIL) OR (PANEL B-NIL) <=4 SPOTS, INCLUDING VALUES LESS THAN ZERO. RESULTS ARE POSITIVE WHEN (PANEL A-NIL) OR (PANEL B-NIL) >=8 SPOTS RESULTS ARE BORDERELINE WHEN EITHER (PANEL A-NIL) OR (PANEL B-NIL)=5,6,0R 7. THE TEST IS INVALID WHEN EITHER OF THE FOLLOWING CONDITIONS IS MET: 1.) THE NIL CONTROL HAS >10 SPOTS 2.) THE MITOGEN (POSITIVE CONTROL) HAS <20 SPOTS AND BOTH (PANEL A-NIL) AND (PANEL B-NIL) <=4 SPOTS. M. TUBERCULOSIS INFECTION UNLIKELY, BUT CANNOT BE EXCLUDED ESPECIALLY WHEN: 1. ANY ILLNESS IS CONSISTENT WITH TB DISEASE. 2. LIKELIHOOD OF PROGRESSION TO DISEASE (e.g. DUE TO IMMUNOSUPPRESSION) IS INCREASED. LIMITATIONS: DIAGNOSING OR EXCLUDING TUBERCULOSIS DISEASE, AND ASSESSING THE PROBABILITY OF LTBI, REQUIRES A COMBINATION OF EPIDEMIOLOGICAL, HISTORICAL, MEDICAL, AND DIAGNOSTIC FINDINGS THAT SHOULD BE TAKEN INTO ACCOUNT WHEN INTERPRETING T-SPOT.TB REFER TO THE MOST RECENT CDC GUIDANCE (HTTP: //WWW.CDC.GOV/NCHSTP/TB) FOR DETAILED RECOMMENDATIONS ABOUT DIAGNOSING TB INFECTION (INCLUDING DISEASE) AND SELECTING PERSONS FOR TESTING. 1.) A FALSE NEGATIVE RESULT CAN BE CAUSED BY INCORRECT BLOOD SAMPLE COLLECTION OR IMPROPER HANDLING OF THE SPECIMEN, AFFECTING LYMPHOCYTE FUNCTION 2.) THE PERFORMANCE OF T-SPOT.TB HAS NOT BEEN ADEQUATELY EVALUATED WITH SPECIMENS FROM INDIVIDUALS YOUNGER THAN AGE 17 YEARS, IN WOMEN, AND IN PATIENTS WITH HEMOPHILIA. 3-) A FALSE POSITIVE RESULT WAS OBTAINED FOR T-SPOT.TB WHEN TESTED IN SUBJECTS WITH M. XENOPI, M. KANSASII, AND M. GORDONAE. WHILE ESAT-6 AND CFP-10 ANTIGENS ARE ABSENT FROM BCG STRAINS OF M. BOVIS AND FROM MOST ENVIRONMENTAL MYCOBACTERIA, IT IS POSSIBLE THAT A POSITIVE T-SPOT.TB RESULT MAY BE DUE TO INFECTION WITH M. KANSASII, M. SZULGAI, M. GORDONAE, OR M. MARINUM. ALTERNATIVE TESTS WOULD BE REQUIRED IF THESE INFECTIONS ARE SUSPECTED. 4.) A NEGATIVE TEST RESULT DOES NOT EXCLUDE THE POSSIBILITY OF EXPOSURE TO, OR INFECTION WITH, M. TUBERCULOSIS. PATIENTS WITH RECENT EXPOSURE TO TB INFECTED INDIVIDUALS EXHIBITING A NEGATIVE T-SPOT.TB RESULT SHOULD BE CONSIDERED FOR RETESTING WITHIN 6 WEEKS OR IF OTHER RELEVANT CLINICAL SYMPTOMS INDICATE POSSIBLE INFECTION. 5.) A POSITIVE TEST RESULT DOES NOT RULE IN ACTIVE TB DISEASE; OTHER TESTS SHOULD BE PERFORMED TO CONFIRM THE DIAGNOSIS OF ACTIVE TB DISEASE SUCH SPUTUM SMEAR AND CULTURE, PCR AND CHEST RADIOGRAPHY. 6.) T-SPOT.TB TEST HAS NOT BEEN EVALUATED IN SUBJECTS WHO HAVE RECEIVED >1 MONTH OF ANTI-TB THERAPY. 7. ) REFRIGERATED AND FROZEN SAMPLES ARE NOT RECOMMENDED FOR USE WITH T=SPOT.TB TEST. Performed by: [facility] Molecular Tuberculosis Laboratory [facility] ([id number]) [place], [place] [address] Specimen Performing Laboratory Blood [facility] [address] [place] [address] * Single antigen beads (09/26/2017 12:00 PM) Component Value Ref Range Single antigen beads See link below for PDF Lab Report Specimen Performing Laboratory [facility] DEPARTMENT OF PATHOLOGY AND [address] [address] * HLA autologous crossmatch, AHG (09/26/2017 12:00 PM) Component Value Ref Range HLA autologous crossmatch See link below for PDF Lab Report Specimen Performing Laboratory [facility] DEPARTMENT OF PATHOLOGY AND [address] [address] * Hepatitis C antibody (09/26/2017 12:00 PM) Component Value Ref Range Hepatitis C Ab Reactive (A) Non-reactive Comment: HCV antibody testing initially Reactive. Confirmation by HCV RNA PCR will be performed and reported separately when completed. Repeat HCV RNA PCR will not be performed if done within 30 days. Specimen Performing Laboratory Serum [facility] DEPARTMENT OF PATHOLOGY AND [address] [address] * Cytomegalovirus Ab, IgM (09/26/2017 12:00 PM) Component Value Ref Range Cytomegalovirus Ab, IgM Positive (A) Negative Comment: Positive; CMV IgM antibodies were detected which may indicate a current or recent infection. Specimen Performing Laboratory Serum [facility] DEPARTMENT OF PATHOLOGY AND [address] [address] * Alpha-1 antitrypsin level (09/26/2017 12:00 PM) Component Value Ref Range Alpha-1 antitrypsin 110 90 - 200 mg/dL Specimen Performing Laboratory Plasma specimen [facility] DEPARTMENT OF PATHOLOGY AND [address] [address] * Hepatitis A antibody IgM (09/26/2017 12:00 PM) Component Value Ref Range Hepatitis A IgM Non-reactive Non-reactive Specimen Performing Laboratory Serum [facility] [place] [address] * Hepatitis A antibody total (09/26/2017 12:00 PM) Component Value Ref Range Hepatitis A total Ab Reactive (A) Non-reactive Comment: Hepatitis A Total Antibody reactive. Hepatitis A IgM antibody will be performed and reported separately when completed. Specimen Performing Laboratory Serum [facility] [address] [address] * Cancer antigen 19-9 (09/26/2017 12:00 PM) Component Value Ref Range CA 19-9 31 0 - 35 U/mL Comment: The [place] Briana 8000 CA19-9 immunoassay was used. Results obtained with different assay methods or kits should not be used interchangeably and may be different. Specimen Performing Laboratory Plasma specimen [facility] [place] [address] * Anti mitochondria screen (09/26/2017 12:00 PM) Component Value Ref Range Anti mitochondria screen Not Detected Not-Detected Specimen Performing Laboratory Blood [facility] [place] [address] * Ceruloplasmin level (09/26/2017 12:00 PM) Component Value Ref Range Ceruloplasmin 22 16 - 45 mg/dL Specimen Performing Laboratory Plasma specimen [facility] [place] [address] * Drug healy 9, ser/luis e, scrn w/rflx to conf (09/26/2017 12:00 PM) Component Value Ref Range Amphetamines, s/p, screen Negative Cutoff 30 ng/mL Methamphetamine, s/p, Negative Cutoff 30 ng/mL screen Barbiturates, s/p, screen Negative Cutoff 75 ng/mL Benzodiazepines, s/p, Negative Cutoff 75 ng/mL screen Cocaine, s/p, screen Negative Cutoff 30 ng/mL Methadone, s/p, screen Negative Cutoff 40 ng/mL Opiates, s/p, screen Positive Cutoff 30 ng/mL Comment: If the screen is positive, then confirmation by mass spectrometry will be added. Additional charges will apply. Unconfirmed positive may be useful for medical purposes, but does not meet forensic standards. Oxycodone, s/p, screen Negative Cutoff 30 ng/mL Phencyclidine, s/p, Negative Cutoff 15 ng/mL screen Cannabinoids, s/p, screen Negative Cutoff 30 ng/mL Drug screen comments, See Note serum Comment: INTERPRETIVE INFORMATION: Drug Screen 9 Panel, Serum or Plasma - Immunoassay Screen with Reflex to Mass Spectrometry Confirmation/Quantitation 1. Methodology: Qualitative Immunoassay Screen 2. Drugs/Drug classes reported as "Positive" are automatically reflexed to mass spectrometry confirmation/quantitation testing. An immunoassay unconfirmed positive screen result may be useful for medical purposes but does not meet forensic standards. 3. The absence of expected drug(s) and/or drug metabolite(s) may indicate non-compliance, inappropriate timing of specimen collection relative to drug administration, poor drug absorption, or limitations of testing. The concentration at which the screening test can detect a drug or metabolite varies within a drug class. Specimens for which drugs or drug classes are detected by the screen are automatically reflexed to a second, more specific technology (mass spectrometry). The concentration value must be greater than or equal to the cutoff to be reported as positive. Interpretive questions should be directed to the laboratory. 4. For medical purposes only; not valid for forensic use. Test developed and characteristics determined by [facility]. See Compliance Statement B: [facility] Performed by [facility], [address] [place] [address] [email or web address], Ford Beck MD - Lab. Director Specimen Performing Laboratory Blood [facility] [address] [place] [address] * Zinc level, serum (09/26/2017 12:00 PM) Component Value Ref Range Zinc 54 (L) 60 - 120 ug/dL Comment: INTERPRETIVE INFORMATION: Zinc, Serum or Plasma Circulating zinc concentrations are dependent on albumin status and are depressed with malnutrition. Zinc may also be lowered with infection, inflammation, stress, oral contraceptives, and . Zinc may be elevated with zinc supplementation or fasting. Elevated zinc concentrations may interfere with copper absorption. Test developed and characteristics determined by [facility]. See Compliance Statement B: [facility] Performed by [facility], [address] [place] [id number] [email or web address], Ford Beck MD - Lab. Director Specimen Performing Laboratory Blood [facility] [address] [place] [address] * ABORh - transplant (09/26/2017 12:00 PM) Component Value Ref Range ABO grouping O Rh type POS Specimen Performing Laboratory Blood [facility] DEPARTMENT OF PATHOLOGY AND GENOMIC MEDICINE [address] [place] [address] * Hepatitis B core antibody total (09/26/2017 12:00 PM) Component Value Ref Range Hepatitis B core total Ab Reactive (A) Non-reactive Specimen Performing Laboratory Serum [facility] DEPARTMENT OF PATHOLOGY AND GENOMIC MEDICINE [address] [place] [address] * Hepatitis C genotype (09/26/2017 12:00 PM) Component Value Ref Range Hepatitis C genotype Not Detected Not Detected Hepatitis C genotype See link below for PDF Lab ReportComment: Specimen Performing Laboratory Blood [facility] DEPARTMENT OF PATHOLOGY AND GENOMIC MEDICINE [address] [place] [address] * Hepatitis C virus quantitative by PCR (09/26/2017 12:00 PM) Component Value Ref Range Hepatitis C quantitative, Not-Detected Not-Detected IU/mL PCR Hepatitis C quantitative, See link below for PDF Lab ReportComment: Case PCR Number: [id number] Specimen Performing Laboratory Blood [facility] DEPARTMENT OF PATHOLOGY AND GENOMIC MEDICINE [address] [place] [address] * Vitamin D 25 hydroxy level (09/26/2017 12:00 PM) Component Value Ref Range Vitamin D, 25-hydroxy 29.6 (L) 30.0 - 150.0 ng/mL Comment: This assay reports the sum of 25-hydroxy vitamin D3 and 25-hydroxy vitamin D2. Reference range: 0-17 years: Deficiency: less than 20ng/mL Optimum level: greater than or equal to 20 ng/mL. 18 years and older: Deficiency: less than 20ng/mL Insufficiency: 20-29 ng/mL Optimum Level: 30-80 ng/mL The assay reportable range is 3.4 155.9 ng/mL. Levels higher than 150 ng/mL may be associated with toxicity. If toxicity is clinically suspected and the reported result is >155.9 ng/mL,contact lab for alternative methods to obtain a definitive level. If separate quantitation of 25-hydroxy vitamin D3 and 25-hydroxy vitamin D2 is needed, please contact lab for alternative methods. Specimen Performing Laboratory Blood [facility] DEPARTMENT OF PATHOLOGY AND [facility] [address] [place] [address] * HIV 1, 2 antibody (09/26/2017 12:00 PM) Component Value Ref Range HIV 1, 2 antibody Non-reactive Non-reactive Comment: Starting from January 06 2016, 4th generation HIV screening and confirmation assays are in use at [facility], consistent with the CDC-recommended algorithm. The screening test detects antibodies to HIV-1, HIV-2 and the p24 antigen. Positive screening results will be automatically reflexed to a HIV-1/HIV-2 differentiation assay. Indeterminant HIV-1 results will be further automatically reflexed to a nucleic acid test for detection of acute infection. Western blot will no longer be performed as a confirmation test. For a quick reference guide on the testing algorithm, please refer to: http://stacks.cdc.gov/view/cdc/30757. Specimen Performing Laboratory Serum [facility] DEPARTMENT OF PATHOLOGY AND [facility] [address] [place] [address] * Hepatitis B surface antibody (09/26/2017 12:00 PM) Component Value Ref Range Hepatitis B surface Ab Non-reactive Non-reactive Specimen Performing Laboratory Serum [facility] DEPARTMENT OF PATHOLOGY AND [address] [address] * Hepatitis B surface antigen (09/26/2017 12:00 PM) Component Value Ref Range Hepatitis B surface Ag Non-reactive Non-reactive Specimen Performing Laboratory Serum [facility] [place] [address] * Cytomegalovirus Ab, IgG (09/26/2017 12:00 PM) Component Value Ref Range Cytomegalovirus Ab, IgG Positive (A) Negative Comment: Positive; IgG antibody to CMV detected which may indicate exposure to CMV infection. Specimen Performing Laboratory Serum [facility] DEPARTMENT OF PATHOLOGY AND [address] [address] * Fibrinogen (09/26/2017 12:00 PM) Component Value Ref Range Fibrinogen 129 (L) 200 - 450 mg/dL Specimen Performing Laboratory Blood [facility] [place] [address] * C-reactive protein (09/26/2017 12:00 PM) Component Value Ref Range CRP 0.97 (H) 0.00 - 0.50 mg/dL Specimen Performing Laboratory Plasma specimen [facility] DEPARTMENT OF PATHOLOGY AND [facility] [address] [place] [address] * MELANIE (09/26/2017 12:00 PM) Component Value Ref Range MELANIE screen <1:80 <1:80 Specimen Performing Laboratory Blood [facility] DEPARTMENT PATHOLOGY [address] [address] * Thyroid stimulating hormone (09/26/2017 12:00 PM) Component Value Ref Range TSH 1.56 0.27 - 4.20 uIU/mL Specimen Performing Laboratory Plasma specimen [facility] DEPARTMENT PATHOLOGY [address] [address] * Prealbumin level (09/26/2017 12:00 PM) Component Value Ref Range Prealbumin 5 (L) 16 - 32 mg/dL Specimen Performing Laboratory Serum [facility] [address] [address] * Phosphorus level (09/26/2017 12:00 PM) Component Value Ref Range Phosphorus 3.3 2.4 - 4.5 mg/dL Specimen Performing Laboratory Plasma specimen [facility] [address] [address] * Magnesium level (09/26/2017 12:00 PM) Component Value Ref Range Magnesium 1.7 1.6 - 2.4 mg/dL Specimen Performing Laboratory Plasma specimen [facility] [address] [address] * Hemoglobin A1c (09/26/2017 12:00 PM) Component Value Ref Range Hemoglobin A1C 4.1 4.0 - 5.6 % Comment: HbA1c cutoffs for diagnosing diabetes: 4.0% - 5.6%=normal 5.7% - 6.4%=increased risk for diabetes (prediabetes) >=6.5%=diabetes Goals for glycemic control (ADA 2016) < 7.0% Target for non adults with diabetes. More or less stringent targets may be appropriate for individual patients. <7.5% Target for Children and adolescents with type 1 diabetes. Specimen Performing Laboratory Blood [facility] [address] [address] * GGT (09/26/2017 12:00 PM) Component Value Ref Range GGT 38 0 - 39 U/L Specimen Performing Laboratory Plasma specimen [facility] [address] [address] * Ferritin level (09/26/2017 12:00 PM) Component Value Ref Range Ferritin level 342 (H) 13 - 150 ng/mL Specimen Performing Laboratory Plasma specimen [facility] DEPARTMENT OF PATHOLOGY AND GENOMIC MEDICINE [address] [place] [address] * Carcinoembryonic antigen (CEA) (09/26/2017 12:00 PM) Component Value Ref Range CEA 8.7 (H) 0.0 - 3.8 ng/mL Comment: Reference range for heavy smokers: 0.0 - 5.5 ng/mL The [place] Briana 8000 CEA immunoassay was used. Results obtained with different assay methods or kits should not be used interchangeably and may be different. Specimen Performing Laboratory Serum [facility] OF PATHOLOGY AND GENOMIC MEDICINE [address] [place] [address] * Alcohol level, blood (09/26/2017 12:00 PM) Component Value Ref Range Alcohol None Detected mg/dL Comment: Normal None Detected Legal Intoxication in [place] 80 mg/dL (0.08%) - Whole Blood Toxic Concentration 200 mg/dL (0.2%) Potentially Fatal 350 - 500 mg/dL (0.35 - 0.5%) Alcohol percent None Detected % Specimen Performing Laboratory Plasma specimen [facility] DEPARTMENT OF PATHOLOGY AND GENOMIC MEDICINE [address] [place] [address] * ECG 12 lead (09/26/2017 9:17 AM) Component Value Ref Range Ventricular rate 62 Atrial rate 62 CA interval 132 QRSD interval 86 QT interval 458 QTC interval 464 P axis 1 -3 QRS axis 1 18 T wave axis 47 EKG impression Normal sinus rhythm with sinus arrhythmia-Normal ECG-No previous ECGs available- Specimen Performing Laboratory [facility] [address] [place] [address] after 03/03/2017 Insurance Payer Benefit Subscriber ID Type Phone Address Plan / Group [employer] xxxxxxxxx HMO [employer] MATILDE SANTA Transplant Self 1945 Home: [id number] [place] [phone]
--- OUTSIDE RECORDS SUMMARY | 2018-03-04 21:36 | XMS REPORT ---
Author Author [facility] Address Unknown Phone Unavailable Care Team Providers Care Compression Molding Machine Setter Name Role Phone SEAN WALKER Unavailable Unavailable SVEN LAGUNA Unavailable Unavailable MARILYN VERNON Unavailable Unavailable Problems This patient has no known problems. Allergies, Adverse Reactions, Alerts This patient has no known allergies or adverse reactions. Medications This patient has no known medications. Results Test Description Test Time Test Comments Text Results Atomic Results Result Comments CHEST XRAY LINE PLACEMENT [place] [address] Patient Name: DARREN SANTA MR #: [id number] : 1945 Age/Sex: 71/F Req #: [id number] Adm Physician: SEAN WALKER MD Ordered by: DAMARI LINN MD Report #: [id number] Location: [facility] Room/Bed: [place] [address] ____ Procedure: [id number] DX/CHEST XRAY LINE PLACEMENT Exam Date : 07/05/17 Exam Time: 2029 REPORT STATUS: Signed EXAMINATION: CHEST XRAY LINE PLACEMENT INDICATION: Evaluation for PICC line placement COMPARISON: 03/28/2017 and 03/25/2017 FINDINGS: TUBES and LINES: Right upper extremity PICC line in good position with tip overlying the atriocaval junction. LUNGS: Lungs are not well inflated. There are bibasilar atelectasis. There is mild prominence of the central pulmonary vasculature, consistent with pulmonary venous congestion. Interlobular septi thickening noted in the perihilar and bibasilar region PLEURA: No pleural effusion or pneumothorax. HEART AND MEDIASTINUM: Cardiac size is mildly enlarged. The aorta is ectatic. BONES AND SOFT TISSUES: No acute osseous lesion. Soft tissues are unremarkable. UPPER ABDOMEN: No free air under the diaphragm. IMPRESSION: 1. Findings are compatible with persistent fluid overload. 2. Right upper extremity PICC line in good position with tip overlying the atriocaval junction. Signed by: Dr. Sarath Phan M.D. on 07/05/2017 9:00 PM Dictated By: SARATH RAPP MD 99 Transcribed By: FARAZ on 07/05/172099 COPY TO: DAMARI LINN MD CT ABDOMEN/PELVIS W [place] [address] Patient Name: DARREN SANTA MR #: [id number] : 1945 Age/Sex: 71/F Req #: [id number] Adm Physician: Ordered by: DAMARI LINN MD Report #: [id number] Location: ER Room/Bed: Procedure: [id number] CT/CT ABDOMEN/PELVIS W Exam Date: 07/05/17 Exam Time : 1400 REPORT STATUS: Signed PROCEDURE: CT ABDOMEN AND PELVIS WITH CONTRAST TECHNIQUE: The abdomen and pelvis were scanned utilizing a multidetector helical scanner from the diaphragm to the lesser trochanter after the IV administration of 100 cc of Isovue 370 and the oral administration of water. Coronal and sagittal multiplanar reformations were obtained. COMPARISON: [facility], CT, CT ABDOMEN/PELVIS WO, 03/25/2017, 8:58. Patients [facility], MR, MRI [facility], 03/26/2017, 14 :49. INDICATIONS: LIVER MASS, FEVER FINDINGS: LOWER THORAX: Lung bases are grossly clear. HEPATOBILIARY: Nodular hepatic contour. Multiple hypodense fluid density lesions are again seen scattered through both hepatic lobes, consistent with simple cysts, which are stable since prior MRI dated 03/26/2017. No enhancing lesions. Stable mild dilation of the common bile duct, which measures approximately 9 mm at the tin hepatis. No radiopaque gallstones. Stable mild gallbladder wall thickening secondary to edema. SPLEEN: Mild splenomegaly measuring 13.1 cm in AP diameter. PANCREAS: No focal masses or ductal dilatation. ADRENALS: No adrenal nodules. KIDNEYS/URETERS: No hydronephrosis, stones, or solid mass lesions. PELVIC ORGANS/BLADDER: Bladder is unremarkable. Metallic T-shaped IUD in place in the endometrial cavity, in satisfactory position. PERITONEUM / RETROPERITONEUM: No free air or fluid. LYMPH NODES: No lymphadenopathy. VESSELS: Celiac trunk, superior and inferior mesenteric, and bilateral renal arteries are patent. Portal, superior mesenteric, and splenic veins are patent. Multiple splenorenal collateral vessels are again noted. GI TRACT: No bowel dilation or evidence of obstruction. No pericolonic inflammatory changes. Appendix is well identified and normal in caliber. Residual contrast in the bowel from study performed at outside institution BONES AND SOFT TISSUES: No acute bony abnormalities. Multilevel degenerative disc changes in the lumbosacral spine, worse at L2-L3, L3-L4, and L4-L5. Unchanged L3-L4 endplate sclerosis, periosteal reaction and erosion when compared to CT dated 03/25/2017. IMPRESSION: 1. No acute abdominopelvic abnormalities. 2. Cirrhotic liver with evidence of portal hypertension manifested by splenomegaly and collateral circulation. 3. Multiple hepatic simple cysts, which have been previously assessed on MRI dated 03/25/2017. No suspicious enhancing lesions in this single phase study. Suha Schneider M.D. Dictated by: Suha Schneider M.D. on 07/05/2017 at 15:32 Electronically approved by: Suha Schneider M.D. on 07/05/2017 at 15:32 Dictated By: SUHA SCHNEIDER MD 153 Transcribed By: RACQUEL on 07/05/17 153 COPY TO: DAMARI LINN MD CHEST 2 VIEWS [place] [address] Patient Name: DARREN SANTA MR # : [id number] : 1945 Age/Sex: 71/F Req #: [id number] Adm Physician: Ordered by: DAMARI LINN MD Report #: [id number] Location: ER Room/Bed: Procedure: [id number] DX/CHEST 2 VIEWS Exam Date: 07/05/17 Exam Time: 1050 REPORT STATUS: Signed PROCEDURE: CHEST 2 VIEWS COMPARISON : Chest x-ray, 06/17/17. INDICATIONS: FEVER FINDINGS: Lines and tubes: None Heart size normal. No focal pulmonary opacity , pleural effusion or pneumothorax. Lung bases have cleared since previous exam, likely because of deeper inspiration on the current study Upper abdomen unremarkable with no free air. No acute bony abnormality. CONCLUSION: No evidence for acute disease. Dictated by: Marilyn Shipley M.D. on 07/05/2017 at 11:46 Electronically approved by: Marilyn Shipley M.D. on 07/05/2017 at 11:46 Dictated By: MARILYN SHIPLEY MD 1146 Transcribed By: RACQUEL on 07/05/17 1146 COPY TO: DAMARI LINN MD CT BRAIN WO [place] [address] Patient Name: DARREN SANTA MR # : [id number] : 1945 Age/Sex: 71/F Req #: [id number] Adm Physician: Ordered by: SVEN LAGUNA MD Report #: [id number] Location: ER Room/Bed: Procedure: [id number] CT/CT BRAIN WO Exam Date: 06/17/17 Exam Time: 1500 REPORT STATUS: Signed EXAMINATION: Head CT without contrast. HISTORY: Altered mental status COMPARISON: Head CT on 04/11/2017 TECHNIQUE: Multidetector axial images were obtained without contrast from the foramen magnum to the vertex . The images were reconstructed using brain and bone algorithms. Thin section brain images were reformatted into coronal and sagittal planes. Motion/streaking artifact limits the evaluation of the skull base and posterior cranial fossa and near the vertex region. FINDINGS: Parenchyma: 1. Persistent mild white matter unremarkable ischemic changes.. 2. No mass or hemorrhage. No CT evidence of acute territorial vascular insult. Extra-axial spaces:No abnormal density. No extra-axial fluid collections Brain volume: Normal for age. Ventricles: No hydrocephalus or displacement. Arteries: No density suggestive of thrombus. Dural sinuses: No abnormal density. Extra-axial spaces: No abnormal density. Foramen magnum: No mass, Chiari malformation, or basilar invagination. Sella: No obvious mass. Paranasal/mastoid sinuses: Imaged portions unremarkable. Skull/ Scalp: No lytic or blastic lesions. No fractures. IMPRESSION: Suboptimal study due to motion. 1. Grossly no acute intracranial hemorrhage, mass or hydrocephalus. 2. Unchanged mild chronic microvascular ischemic changes. Signed by: Dr. Ladonna Dominguez M.D. on 06/17/2017 3:46 PM Dictated By: LADONNA DOMINGUEZ MD [id number] COPY TO: SVEN LAGUNA MD CHEST SINGLE (PORTABLE) [place] [id number] [place] [address] Patient Name: DRAREN SANTA MR #: [id number] : 1945 Age/Sex: 71/F Req #: [id number] Adm Physician: Ordered by: SVEN LAGUNA MD Report #: [id number] Location: ER Room/Bed: Procedure: [id number] DX/CHEST SINGLE (PORTABLE) Exam Date: 06/17/17 Exam Time: 1500 REPORT STATUS: Signed PROCEDURE: A single AP view of the chest. COMPARISON: [facility], DX, CHEST 2 VIEWS, 2016, 17:42. INDICATIONS: ams FINDINGS: Lines/tubes: Previously visualized right-sided PICC line has been removed. Lungs: Lungs are hypoinflated. Bilateral patchy opacities in the lower lungs Pleura: There is no pleural effusion or pneumothorax. Heart and mediastinum: Cardiac silhouette is unremarkable. Central pulmonary venous congestion. Bones: No acute bony abnormality. IMPRESSION: 1. patchy opacities in the lower lungs, which may represent interstitial edema, given the central venous congestion, versus aspiration and less likely pneumonia. 2. No consolidation or effusion. Suha Schneider M.D. Dictated by: Suha Schneider M.D. on 06/17/2017 at 16:58 Electronically approved by: Suha Schneider M.D. on 06/17/2017 at 16 :58 Dictated By: SUHA SCHNEIDER MD 57 Transcribed By: RACQUEL on 06/17/171657 COPY TO: SVEN LAGUNA MD CHEST 2 VIEWS [facility] [address] [place] [address] Patient Name: DARREN SANTA MR # : [id number] : 1945 Age/Sex: 71/F Req #: [id number] Adm Physician: Ordered by: MARILYN VERNON MD Report #: [id number] Location: ER Room/Bed: Procedure: [id number] DX/CHEST 2 VIEWS Exam Date: 05/27/17 Exam Time: 1800 REPORT STATUS: Signed PROCEDURE: Frontal and lateral views of the chest. COMPARISON: [facility], DX, CHEST SINGLE (PORTABLE ), 04/28/2017, 10:13. INDICATIONS: FEVER FINDINGS: Lines/ tubes: Unchanged right-sided PICC line, with distal tip present in the proximal right atrium. Lungs: Lungs are well-inflated. Stable mild prominence of the interstitial markings in the lower lungs, likely reflecting chronic interstitial changes. No consolidation or pulmonary edema. Pleura: There is no pleural effusion or pneumothorax. Heart and mediastinum: Cardiac silhouette is unremarkable. Pulmonary vasculature is normal. Bones: No acute bony abnormality. Degenerative changes of the thoracic spine. IMPRESSION: 1. No acute cardiopulmonary abnormalities. Suha Schneider M.D. Dictated by: Suha Schneider M.D. on 05/27/2017 at 18:25 Electronically approved by: Suha Schneider M.D. on 05/27/2017 at 18:25 Dictated By: SUHA SCHNEIDER MD 24 Transcribed By: RACQUEL on 05/27/171824 COPY TO: MARILYN VERNON MD
[2018-03-04 22:01] LABS: BASOPHILS % 0.4 % (0.0-1.0); EOSINOPHILS % 0.2 % (0.0-6.0); HEMATOCRIT 34.4 % (34.2-44.1); LYMPHOCYTES % 19.1 % (18.0-39.1); MEAN CORPUSCULAR HEMOGLOBIN 37.2 pg (28-32); MEAN CORPUSCULAR HGB CONC 34.9 g/dL (31-35); MEAN CORPUSCULAR VOLUME 106.5 fL (81-99); MONOCYTES # (AUTO) 0.5 (0.2-0.8); MONOCYTES % 8.9 % (4.4-11.3); NEUTROPHILS # (AUTO) 3.7 (2.1-6.9); NEUTROPHILS % 71.2 % (38.7-80.0); PLATELET COUNT 76 x10e3/uL (140-360); RED BLOOD COUNT 3.23 x10e6/uL (3.6-5.1); RED CELL DISTRIBUTION WIDTH 15.9 % (11.7-14.4)
[2018-03-04 22:12] LABS: INR 1.87; PROTHROMBIN TIME 20.2 seconds (11.9-14.5)
[2018-03-04 22:13] LABS: PARTIAL THROMBOPLASTIN TIME 46.6 seconds (23.8-35.5)
[2018-03-04 22:19] LABS: ALANINE AMINOTRANSFERASE 26 IU/L (0-55); ALBUMIN 2.5 g/dL (3.5-5.0); ALBUMIN/GLOBULIN RATIO 0.5 (0.8-2.0); ALKALINE PHOSPHATASE 187 IU/L (40-150); ANION GAP 15.2 mmol/L (8-16); BLOOD UREA NITROGEN 14 mg/dL (7-26); BUN/CREATININE RATIO 20 (6-25); CARBON DIOXIDE 22 mmol/L (22-29); CHLORIDE 106 mmol/L (98-107); CREATININE, SERUM 0.69 mg/dL (0.57-1.11); EST GLOMERULAR FILTRATION RATE > 60 ML/MIN (60-); GLUCOSE 87 mg/dL (74-118); POTASSIUM 5.2 mmol/L (3.5-5.1); SODIUM 138 mmol/L (136-145)
[2018-03-04] MEDS ORDERED: PHYTONADIONE 10 MG/ML AMP SQ ONE (22:30)
[2018-03-04] MEDS ORDERED: TRAMADOL HCL 50 MG TAB PO ONE (22:45)
[2018-03-04 23:20] VITALS: BP 139/76
== END 2018-03-04 23:46 | disposition home or self-care (01) ==
LOC: ER 21:33
DX: K91.840 Postprocedural hemorrhage of a digestive system organ or structure following a digestive system procedure (principal); K74.60 Unspecified cirrhosis of liver; G89.29 Other chronic pain; Z76.82 Awaiting organ transplant status
CPT/HCPCS: 99284; J3430

== ENCOUNTER 2018-04-18 11:54 | Inpatient (IN) | payer MEDICARE, OTHER ==
[~2018-04-18] VITALS: Ht 165.6 cm; Wt 72.6 kg
[2018-04-18 12:25] LABS: BASOPHILS % 0.4 % (0.0-1.0); EOSINOPHILS # (AUTO) 0.1 (0.0-0.4); EOSINOPHILS % 1.3 % (0.0-6.0); HEMATOCRIT 34.1 % (34.2-44.1); LYMPHOCYTES # (AUTO) 1.7 (1.0-3.2); LYMPHOCYTES % 24.1 % (18.0-39.1); MEAN CORPUSCULAR HGB CONC 35.2 g/dL (31-35); MEAN CORPUSCULAR VOLUME 102.4 fL (81-99); MONOCYTES % 13.6 % (4.4-11.3); NEUTROPHILS # (AUTO) 4.3 (2.1-6.9); NEUTROPHILS % 60.3 % (38.7-80.0); PLATELET COUNT 83 x10e3/uL (140-360); RED BLOOD COUNT 3.33 x10e6/uL (3.6-5.1); RED CELL DISTRIBUTION WIDTH 13.9 % (11.7-14.4)
[2018-04-18 12:37] LABS: ANION GAP 8.8 mmol/L (8-16); CALCIUM 8.8 mg/dL (8.4-10.2); CARBON DIOXIDE 27 mmol/L (22-29); CHLORIDE 101 mmol/L (98-107); EST GLOMERULAR FILTRATION RATE > 60 ML/MIN (60-); GLUCOSE 83 mg/dL (74-118); POTASSIUM 4.8 mmol/L (3.5-5.1); SODIUM 132 mmol/L (136-145)
[2018-04-18 14:45] LABS: BLOOD UREA NITROGEN 14 mg/dL (7-26); BUN/CREATININE RATIO 19 (6-25)
[2018-04-18] MEDS ORDERED: IBUPROFEN 400 MG TAB PO PRN (15:15)
[2018-04-18] MEDS ORDERED: MORPHINE SULFATE INJ 4 MG/ML INJ IV ONE (15:15)
[2018-04-18] MEDS ORDERED: ACETAMINOPHEN 325 MG TAB PO PRN (15:15)
[2018-04-18] MEDS ORDERED: ONDANSETRON HCL INJ 2 MG/ML VIAL IV PRN (15:15)
[2018-04-18] MEDS ORDERED: ENOXAPARIN SODIUM INJ 100 MG/ML SYR SC SCH (15:15)
[2018-04-18] MEDS: ENOXAPARIN SOD INJ 40 MG/0.4 ML SYR SC SCH (17:00)
[2018-04-18 18:20] VITALS: BP 132/64
[2018-04-18] MEDS: PIPER-TAZ 3.375 GM 50 ML IV SCH ×2 (18:30→23:49)
[2018-04-18] MEDS ORDERED: SODIUM CHLORIDE 0.9% 250ML 250 ML ONE (18:38)
[2018-04-18 19:45] VITALS: BP 132/64
[2018-04-18 20:00] VITALS: BP 148/81
[2018-04-18 20:18] VITALS: BP 118/54
[2018-04-18] MEDS: VANCOMYCIN 500MG/NS 0.9% 100ML 100 ML IV SCH (20:51)
[2018-04-18] MEDS: MORPHINE SULFATE 2 MG/ML SYR IV PRN (21:50)
[2018-04-19] VITALS (7 sets, daily range): BP systolic 95–130; BP diastolic 50–62
[2018-04-19] MEDS: MORPHINE SULFATE 2 MG/ML SYR IV PRN ×4 (02:40→22:12)
[2018-04-19] MEDS: PIPER-TAZ 3.375 GM 50 ML IV SCH ×4 (04:08→21:32)
[2018-04-19] MEDS: VANCOMYCIN 500MG/NS 0.9% 100ML 100 ML IV SCH ×2 (04:52→17:15)
[2018-04-19] MEDS: LACTULOSE SYRUP 20 GM/30 ML UDC PO SCH ×2 (16:10→21:00)
[2018-04-19] MEDS: ENOXAPARIN SOD INJ 40 MG/0.4 ML SYR SC SCH (18:43)
[2018-04-19] MEDS ORDERED: TRAVOPROST(OPTH) 2.5 ML BTL OP SCH (21:00)
--- NOTE | 2018-04-19 21:59 | History and Physical ---
PRIMARY CARE PHYSICIAN: Dr. Lee CITY DRIVER: Dr. Fernandez CHIEF COMPLAINT: Left leg swelling and redness. HISTORY OF PRESENT ILLNESS: This is a 72-year-old woman with history of osteomyelitis, now developing swelling, pain, and redness of the left lower leg, ongoing for about 5 days. No fever, chills, sweats. She came to the hospital and found to have cellulitis. She is admitted for further evaluation and management. PAST MEDICAL HISTORY: Liver cirrhosis secondary to hepatitis C, hypertension, osteomyelitis, hyperlipidemia, ascites, pressure ulcers, cigarette abuse. PAST SURGICAL HISTORY: Per electronic medical record. FAMILY HISTORY: Hypertension. SOCIAL HISTORY: Patient is . Former smoker. No alcohol, illicits, or cigarettes. ALLERGIES: PER ELECTRONIC MEDICAL RECORD. MEDICATIONS: Per electronic medical record. REVIEW OF SYSTEMS: Denies any dizziness, chest pain, shortness of breath, fever, chills, sweats, nausea, vomiting, diarrhea. PHYSICAL EXAMINATION: VITAL SIGNS: Have been reviewed. GENERAL APPEARANCE: Tired-appearing woman resting in bed. HEENT: Anicteric. Pupils respond to light. No oral lesions. CARDIOVASCULAR: Normal S1 and S2. LUNGS: Moderate breath sounds. ABDOMEN: Soft, nontender, nondistended. EXTREMITIES: No edema or calf tenderness. left leg has edema of the foreleg. There is induration, warmth, tenderness, and mild erythema. SKIN: Dry. PSYCHIATRIC: Flat affect. NEUROLOGICAL: Alert and oriented x3. Moving all extremities. LABS: Reviewed. MEDICATIONS: Reviewed. ASSESSMENT: This is a 72-year-old woman. 1. Left leg cellulitis. 2. Left leg edema. 3. Hypertension. 4. Hyperlipidemia. 5. Liver cirrhosis. 6. History of hepatitis C virus infection. PLAN: 1. Continue vancomycin and Zosyn. 2. Continue Lovenox for DVT prophylaxis. 3. Ultrasound of the left leg is negative for any DVT. 4. Continue with Xifaxan. 5. Continue the PPI. 6. Obtain ammonia level if patient becomes confused. 7. Discharge planning. Job#: [id number]
[2018-04-20 01:10] VITALS: BP 108/51
[2018-04-20] MEDS: MORPHINE SULFATE 2 MG/ML SYR IV PRN ×2 (03:54→08:26)
[2018-04-20] MEDS: PIPER-TAZ 3.375 GM 50 ML IV SCH ×4 (04:18→21:25)
[2018-04-20] MEDS: VANCOMYCIN 500MG/NS 0.9% 100ML 100 ML IV SCH ×2 (06:31→16:46)
[2018-04-20 08:00] VITALS: BP 96/48
[2018-04-20] MEDS ORDERED: MIDODRINE HCL 10 MG PO SCH (08:00)
[2018-04-20] MEDS: ZINC SULFATE 220 MG CAP PO SCH ×2 (08:10→17:05)
[2018-04-20] MEDS: MIDODRINE HCL 5 MG TABLET PO SCH ×3 (08:10→17:05)
[2018-04-20] MEDS: PANTOPRAZOLE SOD 40 MG TABEC PO SCH (08:10)
[2018-04-20] MEDS: RIFAXIMIN 550 MG TABLET PO SCH ×2 (08:10→17:05)
[2018-04-20] MEDS: LACTULOSE SYRUP 20 GM/30 ML UDC PO SCH ×3 (08:10→21:00)
[2018-04-20] MEDS: FUROSEMIDE 20 MG TAB PO SCH (09:00)
[2018-04-20] MEDS: SPIRONOLACTONE 25 MG TAB PO SCH (09:00)
[2018-04-20 12:00] VITALS: BP_SYST 106; BP_SYST 180; BP_DIAS 49; BP_DIAS 72
[2018-04-20] MEDS: MORPHINE SULFATE INJ 4 MG/ML INJ IV PRN ×2 (15:10→20:20)
[2018-04-20] MEDS ORDERED: FUROSEMIDE 20 MG TAB PO ONE (15:30)
[2018-04-20 16:00] VITALS: BP 119/45
[2018-04-20] MEDS: ENOXAPARIN SOD INJ 40 MG/0.4 ML SYR SC SCH (17:05)
[2018-04-20] MEDS ORDERED: HYDRALAZINE HCL 20 MG/ML VIAL IV PRN (18:45)
--- NOTE | 2018-04-20 19:52 | Diagnostic Imaging Report ---
LOWER LEG LEFT - 2 views HISTORY: Pain. Left leg cellulitis COMPARISON: None available. FINDINGS: Bones: No acute displaced fracture. Osseous alignment is within normal limits. Joints: The joint spaces are well-maintained. Soft tissues: Diffuse soft tissue swelling. IMPRESSION: 1. No acute osseous abnormalities. 2. Diffuse soft tissue swelling. Signed by: Dr. Karthik Najera M.D. on 04/20/2018 7:48 PM
[2018-04-20] MEDS: TRAVOPROST(OPTH) 2.5 ML BTL OP SCH (21:25)
[2018-04-21 01:29] VITALS: BP 109/47
[2018-04-21] MEDS: MORPHINE SULFATE INJ 4 MG/ML INJ IV PRN ×3 (01:33→09:37)
[2018-04-21 03:13] LABS: BASOPHILS % 0.7 % (0.0-1.0); EOSINOPHILS # (AUTO) 0.2 (0.0-0.4); EOSINOPHILS % 3.7 % (0.0-6.0); HEMATOCRIT 32.1 % (34.2-44.1); HEMOGLOBIN 11.1 g/dL (12.0-16.0); LYMPHOCYTES # (AUTO) 1.2 (1.0-3.2); LYMPHOCYTES % 28.6 % (18.0-39.1); MEAN CORPUSCULAR HEMOGLOBIN 35.7 pg (28-32); MEAN CORPUSCULAR HGB CONC 34.6 g/dL (31-35); MEAN CORPUSCULAR VOLUME 103.2 fL (81-99); MONOCYTES # (AUTO) 0.5 (0.2-0.8); MONOCYTES % 11.8 % (4.4-11.3); NEUTROPHILS # (AUTO) 2.4 (2.1-6.9); NEUTROPHILS % 54.7 % (38.7-80.0); PLATELET COUNT 64 x10e3/uL (140-360); RED BLOOD COUNT 3.11 x10e6/uL (3.6-5.1)
[2018-04-21 03:30] LABS: ALANINE AMINOTRANSFERASE 24 IU/L (0-55); ALBUMIN 1.8 g/dL (3.5-5.0); ALKALINE PHOSPHATASE 180 IU/L (40-150); ANION GAP 11.8 mmol/L (8-16); BILIRUBIN,DIRECT 2.1 mg/dL (0.0-0.5); BLOOD UREA NITROGEN 12 mg/dL (7-26); BUN/CREATININE RATIO 16 (6-25); CALCIUM 8.2 mg/dL (8.4-10.2); CARBON DIOXIDE 21 mmol/L (22-29); CHLORIDE 102 mmol/L (98-107); CREATININE, SERUM 0.75 mg/dL (0.57-1.11); EST GLOMERULAR FILTRATION RATE > 60 ML/MIN (60-); GLUCOSE 115 mg/dL (74-118); MAGNESIUM 1.6 MG/DL (1.3-2.1); POTASSIUM 4.8 mmol/L (3.5-5.1); SODIUM 130 mmol/L (136-145)
[2018-04-21] MEDS: PIPER-TAZ 3.375 GM 50 ML IV SCH ×4 (04:58→21:30)
[2018-04-21] MEDS: VANCOMYCIN 500MG/NS 0.9% 100ML 100 ML IV SCH ×2 (05:38→16:41)
[2018-04-21] MEDS: MIDODRINE HCL 5 MG TABLET PO SCH ×3 (08:00→17:46)
[2018-04-21] MEDS: LACTULOSE SYRUP 20 GM/30 ML UDC PO SCH ×4 (08:53→21:00)
[2018-04-21] MEDS: SPIRONOLACTONE 25 MG TAB PO SCH (08:53)
[2018-04-21] MEDS: FUROSEMIDE 20 MG TAB PO SCH (08:53)
[2018-04-21] MEDS: RIFAXIMIN 550 MG TABLET PO SCH ×2 (08:54→17:46)
[2018-04-21] MEDS: ZINC SULFATE 220 MG CAP PO SCH ×2 (08:54→17:46)
[2018-04-21] MEDS: PANTOPRAZOLE SOD 40 MG TABEC PO SCH (09:06)
[2018-04-21 09:28] VITALS: BP 103/54
[2018-04-21 12:22] VITALS: BP 122/57
[2018-04-21 13:27] VITALS: BP 103/54
[2018-04-21] MEDS ORDERED: MORPHINE SULFATE 2 MG/ML SYR IV PRN (14:00)
[2018-04-21] MEDS: HYDROCODONE/APAP 5MG-325MG TAB PO PRN (16:07)
[2018-04-21 16:24] VITALS: BP 106/51
[2018-04-21] MEDS: ENOXAPARIN SOD INJ 40 MG/0.4 ML SYR SC SCH (17:46)
[2018-04-21] MEDS: OYST-CAL-D 500MG TABLET PO SCH (17:48)
[2018-04-21 19:20] VITALS: BP 107/51
[2018-04-21] MEDS: TRAVOPROST(OPTH) 2.5 ML BTL OP SCH (21:30)
[2018-04-22] VITALS (8 sets, daily range): BP systolic 100–128; BP diastolic 49–60
[2018-04-22 04:49] LABS: BASOPHILS % 0.4 % (0.0-1.0); EOSINOPHILS # (AUTO) 0.1 (0.0-0.4); EOSINOPHILS % 2.7 % (0.0-6.0); HEMATOCRIT 30.3 % (34.2-44.1); HEMOGLOBIN 10.5 g/dL (12.0-16.0); LYMPHOCYTES # (AUTO) 1.1 (1.0-3.2); LYMPHOCYTES % 23.7 % (18.0-39.1); MEAN CORPUSCULAR HEMOGLOBIN 35.8 pg (28-32); MEAN CORPUSCULAR HGB CONC 34.7 g/dL (31-35); MEAN CORPUSCULAR VOLUME 103.4 fL (81-99); MONOCYTES # (AUTO) 0.7 (0.2-0.8); MONOCYTES % 15.1 % (4.4-11.3); NEUTROPHILS # (AUTO) 2.8 (2.1-6.9); NEUTROPHILS % 57.7 % (38.7-80.0); PLATELET COUNT 70 x10e3/uL (140-360); RED BLOOD COUNT 2.93 x10e6/uL (3.6-5.1); RED CELL DISTRIBUTION WIDTH 13.7 % (11.7-14.4)
[2018-04-22] MEDS: PIPER-TAZ 3.375 GM 50 ML IV SCH ×4 (04:50→22:00)
[2018-04-22 05:12] LABS: ANION GAP 8.8 mmol/L (8-16); BLOOD UREA NITROGEN 15 mg/dL (7-26); BUN/CREATININE RATIO 21 (6-25); CALCIUM 7.9 mg/dL (8.4-10.2); CARBON DIOXIDE 23 mmol/L (22-29); CHLORIDE 106 mmol/L (98-107); CREATININE, SERUM 0.73 mg/dL (0.57-1.11); EST GLOMERULAR FILTRATION RATE > 60 ML/MIN (60-); GLUCOSE 93 mg/dL (74-118); MAGNESIUM 1.4 MG/DL (1.3-2.1); POTASSIUM 4.8 mmol/L (3.5-5.1); SODIUM 133 mmol/L (136-145)
[2018-04-22] MEDS ORDERED: SODIUM CHLORIDE 0.9% 250ML 250 ML ONE (05:30)
[2018-04-22] MEDS: HYDROCODONE/APAP 5MG-325MG TAB PO PRN ×2 (07:59→22:03)
[2018-04-22] MEDS: MIDODRINE HCL 5 MG TABLET PO SCH ×3 (07:59→17:12)
[2018-04-22] MEDS ORDERED: ACETAMINOPHEN/CODEINE 300MG - 30MG TAB PO PRN (08:45)
[2018-04-22] MEDS ORDERED: MORPHINE SULFATE 2 MG/ML SYR IV PRN (09:00)
[2018-04-22] MEDS: PANTOPRAZOLE SOD 40 MG TABEC PO SCH (10:09)
[2018-04-22] MEDS: SPIRONOLACTONE 25 MG TAB PO SCH (10:09)
[2018-04-22] MEDS: OYST-CAL-D 500MG TABLET PO SCH ×2 (10:09→17:12)
[2018-04-22] MEDS: RIFAXIMIN 550 MG TABLET PO SCH ×2 (10:09→17:12)
[2018-04-22] MEDS: ZINC SULFATE 220 MG CAP PO SCH ×2 (10:09→17:12)
[2018-04-22] MEDS: FUROSEMIDE 20 MG TAB PO SCH (10:09)
[2018-04-22] MEDS: LACTULOSE SYRUP 20 GM/30 ML UDC PO SCH ×2 (10:09→17:00)
[2018-04-22] MEDS: VANCOMYCIN 500MG/NS 0.9% 100ML 100 ML IV SCH ×2 (16:01→16:30)
[2018-04-22] MEDS: ENOXAPARIN SOD INJ 40 MG/0.4 ML SYR SC SCH (17:12)
[2018-04-22] MEDS: TRAVOPROST(OPTH) 2.5 ML BTL OP SCH (21:00)
[2018-04-23 00:30] VITALS: BP 118/56
[2018-04-23] MEDS: PIPER-TAZ 3.375 GM 50 ML IV SCH (04:00)
[2018-04-23 04:29] LABS: BASOPHILS % 0.5 % (0.0-1.0); EOSINOPHILS % 0.9 % (0.0-6.0); HEMATOCRIT 29.5 % (34.2-44.1); HEMOGLOBIN 10.3 g/dL (12.0-16.0); MEAN CORPUSCULAR HEMOGLOBIN 35.6 pg (28-32); MEAN CORPUSCULAR HGB CONC 34.9 g/dL (31-35); MEAN CORPUSCULAR VOLUME 102.1 fL (81-99); MONOCYTES # (AUTO) 0.5 (0.2-0.8); MONOCYTES % 11.4 % (4.4-11.3); NEUTROPHILS # (AUTO) 2.7 (2.1-6.9); NEUTROPHILS % 62.7 % (38.7-80.0); PLATELET COUNT 68 x10e3/uL (140-360); RED BLOOD COUNT 2.89 x10e6/uL (3.6-5.1); RED CELL DISTRIBUTION WIDTH 13.6 % (11.7-14.4)
[2018-04-23] MEDS: VANCOMYCIN 500MG/NS 0.9% 100ML 100 ML IV SCH (04:30)
[2018-04-23 04:43] LABS: ANION GAP 6.9 mmol/L (8-16); BLOOD UREA NITROGEN 14 mg/dL (7-26); BUN/CREATININE RATIO 20 (6-25); CALCIUM 7.7 mg/dL (8.4-10.2); CARBON DIOXIDE 20 mmol/L (22-29); CHLORIDE 111 mmol/L (98-107); EST GLOMERULAR FILTRATION RATE > 60 ML/MIN (60-); GLUCOSE 119 mg/dL (74-118); MAGNESIUM 1.3 MG/DL (1.3-2.1); POTASSIUM 3.9 mmol/L (3.5-5.1); SODIUM 134 mmol/L (136-145)
[2018-04-23 04:52] LABS: B-TYPE NATRIURETIC PEPTIDE2 525.5 pg/mL (0-100)
[2018-04-23 05:34] VITALS: BP 109/54
[2018-04-23] MEDS: HYDROCODONE/APAP 5MG-325MG TAB PO PRN (07:00)
[2018-04-23] MEDS ORDERED: LACTULOSE20 GM/30 M PO (07:59)
[2018-04-23 08:00] VITALS: BP 127/62
[2018-04-23] MEDS ORDERED: ALDACTONE25 MG PO (08:06)
[2018-04-23] MEDS ORDERED: ENULOSE10 GM/15 M PO (08:06)
[2018-04-23] MEDS ORDERED: TYLENOL # 31 EA PO (08:06)
[2018-04-23] MEDS ORDERED: CIPRO500 MG PO (08:06)
[2018-04-23] MEDS ORDERED: BACTRIM DS TAB1 EACH PO (08:06)
[2018-04-23] MEDS: LACTULOSE SYRUP 20 GM/30 ML UDC PO SCH (08:12)
[2018-04-23] MEDS: PANTOPRAZOLE SOD 40 MG TABEC PO SCH (08:12)
[2018-04-23] MEDS: RIFAXIMIN 550 MG TABLET PO SCH (08:12)
[2018-04-23] MEDS: ZINC SULFATE 220 MG CAP PO SCH (08:12)
[2018-04-23] MEDS: FUROSEMIDE 20 MG TAB PO SCH (08:12)
[2018-04-23] MEDS: SPIRONOLACTONE 25 MG TAB PO SCH (08:12)
[2018-04-23] MEDS: OYST-CAL-D 500MG TABLET PO SCH (08:12)
[2018-04-23] MEDS: MIDODRINE HCL 5 MG TABLET PO SCH (08:12)
--- NOTE | 2018-04-23 18:27 | Discharge Summary ---
ADMISSION DIAGNOSES 1. Left leg cellulitis. 2. Left leg edema. 3. Hypertension. 4. Hyperlipidemia. 5. Cirrhosis. 6. History of hepatitis C virus. DISCHARGE DIAGNOSES 1. Left leg cellulitis. 2. Left leg edema. 3. Hypertension. 4. Hyperlipidemia. 5. Cirrhosis. 6. History of hepatitis C virus. 7. Hyponatremia. HISTORY: The patient has a history of liver cirrhosis secondary to hep C, osteomyelitis, hyperlipidemia, ascites, pressure ulcers, and cigarette abuse. HOSPITAL COURSE: A 72-year-old female with a history of osteomyelitis now developed pain, swelling and redness of the left lower leg ongoing for about 5 days. She denies fever, chills and sweats. She came to the hospital and was found to have cellulitis. Upon admission, she was started on IV vanco and Zosyn, as well as Lovenox for DVT prophylaxis. A venous Doppler was negative for DVT. X-ray of the leg showed no acute osseous abnormalities. The patient was resumed on home medications, but frequently refused her diuretics, as well as her lactulose. We had a long talk about refusing medications and purpose of both medications, but she continued to say she was going to take them when she wants to. After 5 days, the pain is controlled on p.o. medications. White blood cell count on the day of discharge is 4.3, hemoglobin 10.3, hematocrit 29.5. Sodium 134, potassium 3.9, BUN 14, creatinine of 0.7. GFR of over 60. BNP of 525. In the computer, the home medications were lactulose t.i.d., but the patient said she will only take 30 g daily. She received Lasix 20 mg daily, but often would refuse it due to hyponatremia. Her Aldactone was reduced from 50 mg daily to 25 mg daily, which increased her sodium. The patient will continue home medicines as prescribed. She will follow up with primary care in 1-2 weeks. The patient understands discharge instructions, and is excited to go home. DICTATED BY CHICHO VERMA NP SEAN WALKER MD Job#: [id number] [facility]
== END 2018-04-23 10:18 | disposition home or self-care (01) | DRG 603 ==
LOC: ER 11:54 → ERHOLD 15:23 → MED/SURG2 18:26
PROVIDERS: ADMIT Internal Medicine; ATTEND Internal Medicine
DX: L03.116 Cellulitis of left lower limb (principal); E87.1 Hypo-osmolality and hyponatremia; M86.9 Osteomyelitis, unspecified; K74.60 Unspecified cirrhosis of liver; B19.20 Unspecified viral hepatitis C without hepatic coma; I10 Essential (primary) hypertension; E78.5 Hyperlipidemia, unspecified; G89.29 Other chronic pain; Z85.05 Personal history of malignant neoplasm of liver; Z87.891 Personal history of nicotine dependence; E83.51 Hypocalcemia
CPT/HCPCS: 36415; 80048; 80076; 80202; 82140; 83036; 83735; 83880; 85025; 85651; 93971; 99284; J1650; J2270; J2543; J3370; J7050